=== PATIENT | female | born 1945 | race Caucasian/White ===

== ENCOUNTER → 2018-02-07 14:50 | Outpatient (CLI) | payer MEDICARE, MEDICAID, SELFPAY ==
--- NOTE | 2018-02-07 | DI.MRI.S_ITS ---
PROCEDURE: MR THORACIC SPINE WO CON INDICATIONS: MID BACK PAIN TECHNIQUE: Noncontrast sagittal T1 spine echo and T2 fast spin echo, sagittal STIR, axial T1 and T2 fast spin echo through the thoracic spine. COMPARISON: None. FINDINGS: Image quality: Excellent. Alignment and Curvature: There is normal bony alignment. Bone Marrow: Marrow is of normal overall signal. T4, T11 and L2 compression fractures although no acute marrow edema and these findings are likely chronic. Spinal Cord: Visualized spinal cord is normal in size and signal. Paraspinous Soft Tissues: No paravertebral masses. Bilateral pleural effusions are present. Suspicious pleural based abnormal consolidation/soft tissue seen on image 28 series 6 and right lung base for which dedicated CT chest is recommended. Miscellaneous: No foraminal narrowing. Severe canal stenosis at the level of the L2 compression fracture IMPRESSION: Abnormal appearing consolidation involving the medial right lung base. Bronchogenic malignancy cannot be excluded. Recommend followup with dedicated contrast chest CT. Findings and recommendations personally telephoned and discussed with Dr. Worrell on 02/07/18 at 1655 hours. Chronic T4, T11 and L2 compression fractures. Associated severe canal stenosis at level of the L2 compression fracture due to posterior displacement of the posterior vertebral body wall. Diffuse loss of the normal T1 marrow fat signal intensity suggestive of chronic anemia although other malignant marrow infiltrative processes cannot be excluded. Please correlate to laboratory and clinical data. Small bilateral pleural effusions Dictated by: Adebayo Neumann M.D. on 02/07/2018 at 16:21 Approved by: Adebayo Neumann M.D. on 02/07/2018 at 16:56
== END ==
PROVIDERS: Visit Provider Physical Medicine & Rehabilitation Pain Medicine
DX: M54.6 Pain in thoracic spine (principal); J18.1 Lobar pneumonia, unspecified organism; M48.54XD Collapsed vertebra, not elsewhere classified, thoracic region, subsequent encounter for fracture with routine healing; M48.56XD Collapsed vertebra, not elsewhere classified, lumbar region, subsequent encounter for fracture with routine healing; M48.061 Spinal stenosis, lumbar region without neurogenic claudication
CPT/HCPCS: 72146

== ENCOUNTER → 2018-02-17 13:40 | Outpatient (CLI) | payer MEDICARE, MEDICAID, SELFPAY ==
--- NOTE | 2018-02-17 | DI.CT.S_ITS ---
PROCEDURE: CT CHEST W CON INDICATIONS: LUNG MASS TECHNIQUE: After the administration of intravenous contrast, 5 mm thick sections acquired from the pulmonary apices to the posterior costophrenic angles. 7 mm thick coronal and sagittal MIP reformats were acquired. For radiation dose reduction, the following was used: automated exposure control, adjustment of mA and/or kV according to patient size. COMPARISON: [facility], CR, XR THORACIC SPINE 2 VIEWS, 01/23/2018, 15:11. Outside Facility, RG, MRI L-SPINE W/O CONTRAST, 09/13/2012, 13:52. [facility], MR, MR THORACIC SPINE WO CON, 02/07/2018, 15:03. [facility], CR, CHEST 2 VIEW, 09/06/2012, 9:48. FINDINGS: Image quality: Excellent. Lungs and pleura: Bilateral irregular airspace infiltrates, predominantly involving lower globes no single to right upper and middle lobe, and to a lesser degree the left upper lobe. No pleural effusions or pneumothorax. Small bilateral profusions seen on the MRI dated 02/07/2018 have resolved. Central and peripheral airways are patent and normal in caliber. Mediastinum: Heart size is normal. No pericardial effusion. No mediastinal or hilar adenopathy by size criteria. Thoracic aorta and central pulmonary arteries are normal in size. Esophagus is normal in caliber. No hiatal hernia. Bones and chest wall: No suspicious bony lesions. There are multiple vertebral body compression fractures, severe at T3, T10 and L1. There is posterior displacement of L1 vertebral body causing severe central canal stenosis. There is kyphoplasty of T10. No axillary or supraclavicular adenopathy by size criteria. There is a 1 cm nodule in the right thyroid lobe. Abdomen: Visualized upper abdominal solid organs appear normal. Upper abdominal bowel loops are normal in caliber. IMPRESSION: 1. Bilateral irregular airspace opacities predominantly involving lower loops, most likely secondary to an infectious or inflammatory process. Neoplasm, however, cannot be entirely excluded. Recommend clinical correlation and short-term followup CT after adequate treatment. 2. No mediastinal lymphadenopathy. 3. Multiple compression fractures involving T3, T10 and L1. There is posterior displacement of L1 vertebral body causing severe central canal stenosis. Dictated by: Liset Maldonado M.D. on 02/17/2018 at 14:22 Transcribed by: SHERON on 02/17/2018 at 14:28 Approved by: Liset Maldonado M.D. on 02/19/2018 at 10:10
== END ==
PROVIDERS: PCP Family Medicine; Visit Provider Family Medicine
DX: M48.55XA Collapsed vertebra, not elsewhere classified, thoracolumbar region, initial encounter for fracture (principal); R91.8 Other nonspecific abnormal finding of lung field; E04.1 Nontoxic single thyroid nodule
CPT/HCPCS: 71260; Q9967

== ENCOUNTER → 2018-03-09 14:06 | Outpatient (CLI) | payer MEDICARE, MEDICAID, SELFPAY ==
--- NOTE | 2018-03-09 | DI.CT.S_ITS ---
PROCEDURE: CT CHEST WO CON INDICATIONS: Followup lung masses. TECHNIQUE: Noncontrast 5 mm thick sections acquired from the pulmonary apices to the posterior costophrenic angles. 7 mm thick coronal and sagittal MIP reformats were then acquired. For radiation dose reduction, the following was used: automated exposure control, adjustment of mA and/or kV according to patient size. COMPARISON: [facility], CT, CT CHEST W CON, 02/17/2018, 13:41. FINDINGS: Image quality: Excellent. Lungs and pleura: There are multiple irregular subpleural airspace densities, predominantly involving lower lobes, unchanged from the last examination dated 02/17/2018. For example, a 10 mm spiculated density is noted in the superior segment of the right lower lobe medially (series 3 image 32), not significantly changed from the last exam. A cluster irregular, spiculated densities in the left lower lobe (series 3 image 45) is also stable. No pleural effusions or pneumothorax. Central and peripheral airways are patent and normal in caliber. Mediastinum: Heart size is normal. No pericardial effusion. No mediastinal adenopathy by size criteria. Thoracic aorta and central pulmonary arteries are normal in size. Esophagus is normal in caliber. No hiatal hernia. Bones and chest wall: No suspicious bony lesions. There are severe vertebral body compression fractures at T3 and T10. There is vertebroplasty at T10. No axillary or supraclavicular adenopathy by size criteria. Thyroid gland is normal. Abdomen: Visualized upper abdominal solid organs and bowel loops appear normal in the absence of contrast. IMPRESSION: 1. Stable bilateral irregular airspace opacities, most likely infectious or inflammatory etiology. Recommend continued followup as a neoplastic process is not completely excluded. 2. Severe compression fractures at T3 and T10. Fleischner Society criteria for SOLID lung nodule followup. Nodule size (mm)Low-risk patientHigh-risk patient?4No follow-up neededFollow-up at 12 mo; if no change, no further follow-up>[id number] CT at 12 mo; if no change, no further follow-up needed.Initial follow-up CT at 6-12 mo, then 18-24 mo if no change. >6-8Initial follow-up CT at 6-12 mo, then 18-24 mo if no change. Initial follow-up CT at 3-6 mo, then 9-12 mo and 24 mo if no change. >8Follow-up CT at 3, 9, 24 mo. Or PET and/or biopsy.Same as for low-risk pts. Fleischner Society criteria for SUB-SOLID lung nodule followup. Solitary pure ground-glass nodules5 mm or lessNo followup needed. >5 mm3 mo follow-up CT to confirm persistence. Then annual CT for 3 years. Part-solid nodules3 mo follow-up CT to confirm persistence. If persistent with solid component <5 mm, annual CT for at least 3 years. If solid component is 5 mm or more, biopsy or surgical resection. Consider PET-CT for lesions > 10 mm. Multiple sub-solid nodulesPure ground glass nodules [address] at 2 and 4 years. Pure ground glass nodules >5 mm without dominant lesion. [address] to confirm persistence, then annual followup CT for at least 3 years. Dominant nodule(s) with part-solid or solid component. [address] to confirm persistence. If persistent, consider biopsy or surgical resection, [place] if lesions have >5 mm solid component. Dictated by: Liset Maldonado M.D. on 03/09/2018 at 14:46 Transcribed by: SHERON on 03/09/2018 at 14:57 Approved by: Liset Maldonado M.D. on 03/09/2018 at 15:50
== END ==
PROVIDERS: PCP Family Medicine; Visit Provider Family Medicine
DX: R91.8 Other nonspecific abnormal finding of lung field (principal); M48.54XA Collapsed vertebra, not elsewhere classified, thoracic region, initial encounter for fracture
CPT/HCPCS: 71250

== ENCOUNTER → 2018-04-07 14:02 | Outpatient (CLI) | payer MEDICARE, MEDICAID, SELFPAY | PROVIDERS: PCP Family Medicine; Visit Provider Family Medicine | DX: M81.0 Age-related osteoporosis without current pathological fracture (principal); Z78.0 Asymptomatic menopausal state; Z87.891 Personal history of nicotine dependence | CPT/HCPCS: 77080 ==

== ENCOUNTER → 2021-03-12 13:52 | Outpatient (CLI) | payer MEDICARE, MEDICAID, SELFPAY | PROVIDERS: PCP Internal Medicine; Referring Provider Internal Medicine Endocrinology, Diabetes & Metabolism; Visit Provider Internal Medicine Endocrinology, Diabetes & Metabolism | DX: M81.0 Age-related osteoporosis without current pathological fracture (principal); Z78.0 Asymptomatic menopausal state; S62.101S Fracture of unspecified carpal bone, right wrist, sequela; Z87.891 Personal history of nicotine dependence | CPT/HCPCS: 77080 ==

== ENCOUNTER → 2021-09-09 14:44 | Outpatient (CLI) | payer MEDICARE, MEDICAID, SELFPAY ==
--- NOTE | 2021-09-09 14:52 | DI.RAD.S_ITS ---
PROCEDURE: XR CHEST 2V INDICATIONS: Multiple Fractures TECHNIQUE: 2 views of the chest were acquired. COMPARISON: [facility], , CHEST 2 VIEW, 09/06/2012, 9:48. FINDINGS: Surgical changes and devices: None. Lungs and pleura: There is interstitial prominence. Left basilar scars and atelectasis. Pleural thickening versus trace pleural effusions bilaterally. No pneumothorax. Mediastinum: Mediastinal contours are normal. Heart size is normal. Bones and chest wall: Compression fracture of T12 with vertebroplasty. No suspicious bony abnormalities. Soft tissues appear unremarkable. IMPRESSION: 1. Left basilar scars and atelectasis. 2. Interstitial prominence. 3. Bilateral pleural scarring versus trace pleural effusions. Dictated by: Liset Maldonado M.D. on 09/09/2021 at 17:22 Approved by: Liset Maldonado M.D. on 09/09/2021 at 17:24
== END ==
PROVIDERS: PCP Internal Medicine; Referring Provider Physician Assistant; Visit Provider Physician Assistant
DX: R05.8 Other specified cough; R06.00 Dyspnea, unspecified; J98.4 Other disorders of lung; J98.11 Atelectasis
CPT/HCPCS: 71046

== ENCOUNTER → 2021-10-19 10:55 | Outpatient (CLI) | payer MEDICARE, MEDICAID, SELFPAY ==
[2021-10-19 16:16] LABS: COVID19 -Nasal RAPID Negative (Negative)
== END ==
PROVIDERS: PCP Internal Medicine; Visit Provider Obstetrics & Gynecology
DX: Z01.812 Encounter for preprocedural laboratory examination (principal); Z20.822 Contact with and (suspected) exposure to COVID-19
CPT/HCPCS: 87635

== ENCOUNTER 2021-10-22 07:38 | Day surgery (SDC) | payer MEDICARE, MEDICAID, SELFPAY ==
[2021-10-19 15:02] VITALS: BMI 25.2
[2021-10-22] VITALS (7 sets, daily range): BP systolic 86–120; BP diastolic 43–62; PULSE 10–86; RESP 11–18; TEMP 36.6–36.8; O2SAT 93–95; BMI 25.2
--- NOTE | 2021-10-22 08:29 | SUR.OPER ---
Lithotomy on padded OR bed, head on pillow, arms secured on padded arm boards at <90 degrees abduction. Legs secured in padded yellow fins stirrups.
--- NOTE | 2021-10-22 08:31 | PM.HP.1 ---
History of Present Illness History of Present Illness Date Patient Seen: 10/22/21 Time Patient Seen: 08:53 Chief complaint: SDC Narrative: Patient is a 76-year-old 0 who presented to the office with postmenopausal bleeding. She had endometrial hyperplasia by ultrasound. She was unable to tolerate any exam in the office. She presents for a D&C hysteroscopy. Patient History Medical History (Updated 10/19/21 @ 15:09 by Sheri Knapp RN) Anxiety Asthma HLD (hyperlipidemia) Osteoarthritis PTSD (post-traumatic stress disorder) Spinal fracture Surgical History (Updated 10/19/21 @ 15:09 by Sheri Knapp RN) Hx of knee surgery Family & Social History Tobacco & Substance use: Smoking Status Former smoker alcohol intake never Substance Use Type does not use Meds Home Medications and Allergies Home Medications Medication Instructions Recorded Confirmed Type albuterol sulfate 90 mcg/actuation 1 - 2 puff INH PRN PRN #0 10/18/17 10/22/21 History aerosol inhaler (Ventolin HFA) alendronate 70 mg tablet 70 mg PO QWEEK #0 10/18/17 10/22/21 History atorvastatin 40 mg tablet 40 mg PO DAILY 10/19/21 10/22/21 History diltiazem HCl 240 mg 240 mg PO DAILY 10/19/21 10/22/21 History capsule,extended release 24 hr (Cardizem CD) divalproex 125 mg tablet,delayed 375 mg PO TID tab 10/19/21 10/22/21 History release gabapentin 300 mg capsule 600 mg PO TID #0 cap 10/19/21 10/22/21 History (Neurontin) hydrocodone 10 mg-acetaminophen 1 tab PO Q4-6H PRN 10/19/21 10/22/21 History 325 mg tablet mirtazapine 30 mg tablet 30 mg PO DAILY 10/19/21 10/22/21 History rivaroxaban 20 mg tablet (Xarelto) 20 mg PO DAILY 10/19/21 10/19/21 History temazepam 15 mg capsule 30 mg PO BEDTIME PRN cap 10/19/21 10/19/21 History Allergies Allergy/AdvReac Type Severity Reaction Status Date / Time amoxicillin [AMOXICILLIN] Allergy Unknown VERY Verified 10/22/21 08:38 NAUSEOUS. IT HAPPENED SO LONG AGO CAN'T REMEMBER CARLOS clavulanic acid Allergy Unknown NAUSEA Verified 10/22/21 08:38 [From AUGMENTIN] Penicillins [PENICILLINS] Allergy Unknown NAUSEA Verified 10/22/21 08:38 tetracycline [TETRACYCLINE] Allergy Unknown NAUSEA Verified 10/22/21 08:38 Exam Vital Signs (past 8 hours): - 10/22/21 08:15 Temperature 98.1 F Pulse Rate 86 Respiratory Rate 18 Blood Pressure 103/62 Pulse Oximetry 95 Oxygen Delivery Method Room Air Narrative Exam Narrative: HEENT: No thyromegaly, no anterior cervical or supraclavicular lymphadenopathy. Lungs:Clear to auscultation bilaterally, no wheezes. Cardiovascular: Regular rate and rhythm, no murmurs, rubs, or gallops. Abdomen: No scars. No hepatosplenomegaly. No masses palpable. External genitalia: Atrophic Vagina: Atrophic Cervix: Nulliparous Bimanual exam: Patient unable to tolerate Extremities: Blister on left heel Assessment & Plan Assessment & Plan narrative: Assessment: 76-year-old 0 with postmenopausal bleeding and endometrial hyperplasia Unable to tolerate biopsy in the office Plan: Examination under anesthesia D&C hysteroscopy The risks, benefits, and alternatives to the procedure were explained to the patient. The risks including bleeding, infection, and uterine perforation. She understands these risks and agrees to proceed. A full par Q was held and consent form was signed. COVID-19 COVID-19 status: Negative Result date/Date tested (Pos, Neg/Pending): 10/19/21 Time Spent With Patient Time with patient: less than 30 minutes Critical Care time: I spent a total of [] minutes of critical care time on this patient's care today; this time is exclusive of procedural time.
[2021-10-22] MEDS: LACTATED RINGERS 1,000 ML 100 ML IV (08:39)
--- NOTE | 2021-10-22 08:56 | PM.PREOP ---
Pre-operative Note COVID-19 COVID-19 status: Negative Result date/Date tested (Pos, Neg/Pending): 10/22/21 Criteria for continued procedure: Delay expected to result in less-positive ultimate med/surg outcome and Non-surgical alternatives not available or appropriate per current SOC Interval Note History & Physical reviewed/Exam performed by Physician: Yes Changes to H&P: No H&P completed within 30 days and has changed as indicated here:: 10/22/21
--- NOTE | 2021-10-22 09:36 | PM.GYNOP.1 ---
Operative Date/Time/Diagnoses Date of procedure: 10/22/21 Time of procedure: 09:36 Pre-op diagnosis: Postmenopausal bleeding Endometrial hyperplasia by ultrasound Unable to tolerate endometrial biopsy in the office Post-op diagnosis: same Procedure & Clinicians Procedure: Procedures Operation Date: 10/22/21 09:00 Actual Procedure Side Surgeon p Examination under anesthesia Tara Grey MD Indications: Postmenopausal bleeding Endometrial hyperplasia by ultrasound Unable to tolerate endometrial biopsy in the office Surgeon: Tara Grey Anesthesia Type: General (LMA) Operative Notes Findings: 5 week size anteverted uterus Stenotic/atrophic vagina Unable to visualize cervix Closure Type: not applicable Specimen(s): none Estimated blood loss (mL): 2 Blood products transfused: none Procedure in detail: After informed consent was obtained, the patient was taken to the operating room where she was placed in the dorsal supine position. After adequate LMA general anesthesia was achieved, she was placed in the dorsal lithotomy position, and prepped and draped in the usual sterile fashion. A time-out was performed. A pediatric speculum was placed into the vagina. The cervix was not visualized. The speculum was removed. A digital exam was performed which revealed a very stenotic posterior vagina as well as atrophy. An attempt was made to open the vagina digitally with some Surgilube. The cervix could never be visualized. Due to risk of perforation, no attempt was made to dilate. The speculum was removed from the vagina. Sponge, lap, and instrument counts were correct x2. The patient tolerated the procedure well, and was taken to PACU in stable condition. Complications: none Post-operative Condition: stable Disposition: PACU Plan for aftercare: Home after recovery
--- NOTE | 2021-10-22 10:37 | SUR.PHASEII ---
patient has slight shivers. warm blankets given. will allow to rest for a bit then dress for dc home. denies pain.
== END 2021-10-22 11:20 | disposition home or self-care (01) ==
PROVIDERS: PCP Internal Medicine; Referring Provider Obstetrics & Gynecology; Visit Provider Obstetrics & Gynecology
PROC: 0UDB8ZZ Extraction of Endometrium, Via Natural or Artificial Opening Endoscopic (ICD-10-PCS; CPT 58558; principal; 2021-10-22 09:00)
DX: N95.0 Postmenopausal bleeding (principal); N85.00 Endometrial hyperplasia, unspecified; N89.5 Stricture and atresia of vagina
CPT/HCPCS: 57410; J2704; J3010

== ENCOUNTER 2022-01-31 12:58 | Inpatient (IN) | payer MEDICARE, MEDICAID, SELFPAY ==
[2022-01-31 13:11] VITALS: BP 162/81; PULSE 67; RESP 18; TEMP 35.8; O2SAT 96; BMI 26.2
--- NOTE | 2022-01-31 13:38 | DI.RAD.S_ITS ---
PROCEDURE: XR CHEST 1V INDICATIONS: Fatigue TECHNIQUE: One view of the chest was acquired. COMPARISON: [facility], CR, XR CHEST 2V, 09/09/2021, 14:55. FINDINGS: Surgical changes and devices: None. Metallic density overlying the mid chest may represent overlying structure. Kyphoplasty changes of the lower thoracic spine. Lungs and pleura: Slightly increased lucency in flattening of the hemidiaphragms. No pneumothorax or pleural effusion. Subtle small opacities are noted scattered throughout the right greater than left lung. Mediastinum: Mediastinal contours appear normal. Heart size is normal. Bones and chest wall: No suspicious bony lesions. Remote thoracic spine compression deformity. Remote left-sided rib fractures. No acute osseous abnormality. Overlying soft tissues appear unremarkable. IMPRESSION: Findings suggestive of emphysema. Subtle patchy opacities noted throughout the right greater than left lungs concerning for an atypical infectious process/multifocal pneumonia in the correct clinical setting. Dictated by: Nathan Alba D.O. on 01/31/2022 at 12:53 Approved by: Nathan Alba D.O. on 01/31/2022 at 12:57
[2022-01-31 14:23] LABS: Add Manual Diff / Slide Review NO; Basophils Absolute Auto 100 /uL (0-100); Basophils Percent Auto 0.9 % (0-2); Eosinophils Absolute Auto 0 /uL (0-450); Hematocrit 33.4 % (36-46); Hemoglobin 11.1 g/dL (12.0-16.0); Lymphocytes Absolute Auto 800 /uL (1100-4500); Lymphocytes Percent Auto 5.2 % (25-40); Mean Corpuscular HGB Conc 33.2 % (30-36); Mean Corpuscular Hemoglobin 29.7 PG (26-34); Mean Corpuscular Volume 89.5 fL (80-100); Monocytes Absolute Auto 1300 /uL (0-900); Monocytes Percent Auto 8.5 % (3-14); Neutrophils Absolute Auto 12600 /uL (1500-7000); Neutrophils Percent Auto 85.4 % (50-75); Platelet Count 225 X10^3/uL (150-400); Red Blood Cell Count 3.73 X10^6/uL (4.0-5.2); Red Cell Distribution Width 14.7 % (11.6-14.8); White Blood Cell Count 14.7 X10^3/uL (4.5-11.0)
[2022-01-31 14:34] LABS: Alanine Aminotransferase 17 IU/L (<35); Albumin 3.3 g/dL (3.5-5.0); Albumin Globulin Ratio 1.1 (1.0-2.8); Alkaline Phosphatase 62 U/L (38-126); Aspartate Aminotransferase 26 IU/L (14-36); BUN Creatinine Ratio 49.3 (6-22); Bilirubin Total 0.8 mg/dL (0.2-1.3); Blood Urea Nitrogen 34 mg/dL (7-17); Calcium 8.4 mg/dL (8.4-10.2); Carbon Dioxide 27 mmol/L (22-32); Chloride 107 mmol/L (98-107); Creatine Kinase 48 U/L (30-135); Estimated Glomerular Filt Rate > 60 mL/min (>60); Globulin 2.9 g/dL (1.7-4.1); Glucose 123 mg/dL (80-110); HEMOLYSIS < 15 (0-50); Lipase 30 U/L (23-300); Potassium 4.2 mmol/L (3.4-5.1); Sodium 138 mmol/L (137-145); Total Protein 6.2 g/dL (6.3-8.2)
[2022-01-31 14:35] LABS: Lactate (Lactic Acid) 0.8 mmol/L (0.7-2.1)
[2022-01-31 14:46] LABS: Troponin I < 0.012 ng/mL (0.01-0.034)
[2022-01-31 14:51] LABS: Procalcitonin 0.21 ng/mL (<0.5)
--- NOTE | 2022-01-31 14:53 | DI.CT.S_ITS ---
PROCEDURE: CT CHEST ABD PEL W CON INDICATIONS: Abdominal pain, diarrhea, wheezing TECHNIQUE: After the administration of intravenous contrast, 5 mm thick sections acquired from the lung apices to the symphysis. 5 mm coronal and sagittal reformats were performed, with additional 7 mm MIP reformats through the lungs. For radiation dose reduction, the following was used: automated exposure control, adjustment of mA and/or kV according to patient size. COMPARISON: [facility], CR, XR LUMBAR SPINE WITH OLBIQUES PLUS FLEXION EXTENSION, 04/28/2020, 13:23. [facility], NM, NM PET CT FUSION SKULL 2 THIGH, 05/10/2018, 15:38. [facility], CR, XR LUMBAR SPINE WITH OLBIQUES PLUS FLEXION EXTENSION, 08/26/2017, 14:08. [facility], CT, CT CHEST WO CON, 03/09/2018, 14:09. FINDINGS: Image quality: Excellent. CHEST: Lungs and pleura: There is no focal consolidation, pneumothorax, or pleural effusion. Likely mucous plugging noted within the posterior aspect of the right lower lobe. Adjacent parenchymal calcifications which may represent granulomas versus is remote infectious or inflammatory changes. These findings are unchanged. Within the right lower lobe there is a new 9 x 7 mm irregular pulmonary nodule with extension to the adjacent fissure. There is an adjacent intra fissural lymph node. Mediastinum: Heart size is normal. No pericardial effusion. No mediastinal or hilar adenopathy by size criteria. A few calcified mediastinal lymph nodes. Moderate coronary vascular calcifications. Thoracic aorta and central pulmonary arteries are normal in size. Vascular calcifications of throughout the aorta and branch vessels. All common body occupies 5 in at Esophagus is normal in caliber. No hiatal hernia. Chest wall: No axillary or supraclavicular adenopathy by size criteria. Thyroid gland is unremarkable. ABDOMEN: Solid organs: There is moderate intrahepatic ductal dilation. The common bile duct it measures 1.7 cm and a lesion. There is irregular hypoattenuation noted adjacent to the distal common bile duct and pancreatic head as well as the distal stomach/proximal duodenum. This is difficult to delineate from the adjacent structures. There is pneumobilia no struck a shins angi within the left side of the liver. Spleen is normal in size and enhancement. Multiple calcifications noted throughout the spleen consistent with prior granulomatous disease. No adrenal nodules. Kidneys demonstrate normal size and enhancement, without hydronephrosis. Peritoneum and bowel: Small hiatal hernia. The distal subtle lytic wall appears thickened did difficult to fully appreciate extending into the soft tissue density adjacent to the pancreatic head. This extends into the proximal duodenum lobe. Small bowel is otherwise normal in course and caliber. There is diffuse stool burden noted throughout the colon with dilation of the distal sigmoid and rectum with wall thickening and surrounding inflammation. There is also mild wall thickening of the rectum. Nodes and vessels: No retroperitoneal or mesenteric adenopathy by size criteria. Aorta and inferior vena cava are normal in size. Miscellaneous: No ventral hernias. PELVIS: Genitourinary: Bladder wall thickness is normal. Large calcified uterine fibroid. Miscellaneous: No inguinal hernias or adenopathy. Bones: Severe compression deformity of T4 is again noted, not significantly changed. Remote compression deformity of T11 with vertebroplasty changes is also unchanged. Severe compression deformity of L2 with posterior displacement of fracture fragment resulting in at least moderate spinal canal stenosis is also not significantly changed. No new compression fracture. No new osseous abnormality. Remote left 4th rib fracture. No vertebral body compression fractures. IMPRESSION: Non-specific soft tissue attenuation surrounding the head of the pancreas as well as the distal stomach and proximal duodenum with resultant common bile duct dilation as well as intrahepatic ductal dilation concerning for malignancy versus inflammatory process of the stomach/proximal duodenum. Recommend dedicated MRI with MRCP for further evaluation versus direct visualization with endoscopy/ERCP. 8 mm right middle lobe irregular pulmonary nodule. Consider PET-CT versus sampling. Findings most consistent with stercoral colitis with marked colonic distention, wall thickening and surrounding inflammation of the distal sigmoid colon and rectum. There is mild wall thickening of the distal rectum. Recommend correlation with direct visualization and physical exam to exclude malignancy. Multiple remote compression fractures of the thoracic and lumbar spine. Additional chronic findings as above. Findings discussed with DANIELA Sandy of the ER by Dr. Nathan Alba over the telephone at approximately 1520 hrs AST on 01/31/22. Dictated by: Nathan Alba D.O. on 01/31/2022 at 14:44 Approved by: Nathan Alba D.O. on 01/31/2022 at 15:26
--- NOTE | 2022-01-31 14:57 | ED_ITS ---
HPI - Nausea/Vomiting/Diarrhea <Ramón Sandy PA-C - Last Filed: 01/31/22 19:38> General Chief complaint: Nausea/Vomiting/Diarrhea Stated complaint: fatigue Time Seen by Provider: 01/31/22 13:28 Source: EMS Mode of arrival: EMS History of Present Illness HPI Narrative: Patient is a 76-year-old female who presents to the emergency department the EMS for an evaluation of fatigue. Patient states that over the past 3 days she has been almost exclusively in bed and has not been eating and drinking regularly. She states that she has been experiencing fatigue over the past 3 days and does report that she began to experience nonbloody diarrhea 2 days ago. She denies any known fever, chills, chest pain, cough, shortness of breath, nausea, vomiting, constipation, abdominal pain, dysuria, hematuria, or any other concerning symptoms. No further concerns were voiced at this time. Related Data Home Medications Medication Instructions Recorded Confirmed albuterol sulfate 90 mcg/actuation 1 - 2 puff INH PRN PRN Shortness 10/18/17 01/20/22 aerosol inhaler (Ventolin HFA) Of Breath ##0 alendronate 70 mg tablet 70 mg PO QWEEK ##0 10/18/17 01/20/22 atorvastatin 40 mg tablet 40 mg PO DAILY 10/19/21 01/20/22 diltiazem HCl 240 mg 240 mg PO DAILY 10/19/21 01/20/22 capsule,extended release 24 hr (Cardizem CD) divalproex 125 mg tablet,delayed 375 mg PO TID 10/19/21 01/20/22 release gabapentin 300 mg capsule 600 mg PO TID #0 caps 10/19/21 01/20/22 (Neurontin) hydrocodone 10 mg-acetaminophen 1 tab PO Q4-6H PRN Pain 10/19/21 01/20/22 325 mg tablet mirtazapine 30 mg tablet 30 mg PO DAILY 10/19/21 01/20/22 temazepam 15 mg capsule 30 mg PO BEDTIME PRN Sleep 10/19/21 01/20/22 Previous Rx's Medication Instructions Recorded estradiol 0.01% (0.1 mg/gram) 0.5 g vaginal BEDTIME #42.5 grams 01/06/22 vaginal cream (Estrace) Allergies Allergy/AdvReac Type Severity Reaction Status Date / Time amoxicillin [AMOXICILLIN] AdvReac Unknown VERY Verified 01/31/22 15:03 NAUSEOUS. IT HAPPENED SO LONG AGO CAN'T REMEMBER CARLOS clavulanic acid AdvReac Unknown NAUSEA Verified 01/31/22 15:03 [From AUGMENTIN] Penicillins [PENICILLINS] AdvReac Unknown NAUSEA Verified 01/31/22 15:03 tetracycline [TETRACYCLINE] AdvReac Unknown NAUSEA Verified 01/31/22 15:03 Review of Systems <Ramón Sandy PA-C - Last Filed: 01/31/22 19:38> Constitutional Constitutional: Denies chills, Reports fatigue, Denies fever(s), Denies frequent falls, Denies lethargy, Reports poor appetite and Denies weakness ENT Ears, Nose, Mouth, and Throat: Denies neck pain Cardiovascular Cardiovascular: Denies chest pain, Denies irregular heart rhythm, Denies lightheadedness, Denies palpitations, Denies dyspnea, Denies dyspnea on exertion and Denies orthopnea Respiratory Respiratory: Denies dyspnea and Denies dyspnea on exertion Gastrointestinal Gastrointestinal: Denies abdominal pain, Denies change in bowel habits, Reports diarrhea, Denies nausea and Denies vomiting Genitourinary Genitourinary: Denies hematuria, Denies flank pain, Denies urinary incontinence and Denies urinary urgency Musculoskeletal Musculoskeletal: Denies back pain, Denies muscle weakness, Denies neck pain, Denies numbness and Denies tingling Integumentary/Breasts Skin/Breast: Denies pruritus, Denies erythema, Denies rash and Denies wounds Neurologic Neurologic: Denies frequent falls, Denies numbness, Denies tingling and Denies weakness Endocrine Endocrine: Reports fatigue and Denies palpitations Patient History <Ramón Sandy PA-C - Last Filed: 01/31/22 19:38> Medical History Anxiety Asthma HLD (hyperlipidemia) Osteoarthritis PTSD (post-traumatic stress disorder) Spinal fracture Surgical History Hx of knee surgery Social History Smoking Status: Former smoker alcohol intake: never Smoking Status: Former smoker Substance Use Type: does not use Exam <Ramón Sandy PA-C - Last Filed: 01/31/22 19:38> Narrative Exam Narrative: GENERAL: 76 year old patient appears stated age. Well-developed patient, in no acute distress. HEAD: Atraumatic. Normocephalic. EYES: Pupils equal round and reactive. Extraocular motions intact. No scleral icterus. No injection or drainage. ENT: Nose without bleeding, purulent drainage. Throat without erythema, tonsillar hypertrophy or exudate. Airway patent. NECK: Trachea midline. Non tender CARDIOVASCULAR: Regular rate and rhythm without murmurs, gallops, or rubs. RESPIRATORY: Scattered wheezing auscultated throughout all lobes of the lungs bilaterally. No increased work of breathing appreciated. No signs of significant respiratory distress. GASTROINTESTINAL: Abdomen soft, nondistended. Generalized tenderness to palpation appreciated throughout all 4 quadrants of the abdomen. No guarding or rebound tenderness. No masses appreciated, no overlying ecchymosis or erythema. EXTREMITIES: No edema or joint tenderness. BACK: Nontender without deformity or crepitance. No flank tenderness. NEURO: AOx3. SKIN: No rash or erythema of visible areas Initial Vital Signs Initial Vital Signs: Vital Signs Temperature 96.4 F L 01/31/22 13:11 Pulse Rate 67 01/31/22 13:11 Respiratory Rate 18 01/31/22 13:11 Blood Pressure 162/81 H 01/31/22 13:11 Pulse Oximetry 96 01/31/22 13:11 Oxygen Delivery Method 01/31/22 13:11 <Chato Acosta MD - Last Filed: 01/31/22 21:36> Initial Vital Signs Initial Vital Signs: Vital Signs Temperature 96.4 F L 01/31/22 13:11 Pulse Rate 67 01/31/22 13:11 Respiratory Rate 18 01/31/22 13:11 Blood Pressure 162/81 H 01/31/22 13:11 Pulse Oximetry 96 01/31/22 13:11 Oxygen Delivery Method 01/31/22 13:11 Course <Ramón Sandy PA-C - Last Filed: 01/31/22 19:38> Course Course Narrative: CBC, CMP, lipase, troponin, procalcitonin, lactic acid, COVID-19 swab, chest x- ray, left foot x-ray, CT of the chest abdomen pelvis ordered. Discussed results CT with hospitalist and states that she believes it is appropriate to have patient admitted. Orders Ordered: ED Orders 01/31/22 13:38 XR chest 1V Stat 01/31/22 14:14 CBC Auto Diff [Complete Blood Count AUTO DIFF] Stat CMP [Comprehensive Metabolic Panel] Stat Lactate (Lactic Acid) Stat Lipase Stat Procalcitonin Stat Troponin & CK Cardiac Panel Stat 01/31/22 14:53 CT chest abd pel w con Stat 01/31/22 15:45 XR foot LT min 3V Stat 01/31/22 16:18 COVID19 -Nasal RAPID/Pre-Proc Stat Discontinued Medications Sodium Chloride (Normal Saline 0.9%) 1,000 mls @ 1,000 mls/hr IV BOLUS ONE Stop: 01/31/22 15:52 Last Infusion: 01/31/22 19:11 Dose: 0 mls/hr Documented By: СВЕТЛАНА Admin: 01/31/22 15:58 Dose: 1,000 mls/hr Documented By: СВЕТЛАНА Morphine Sulfate (Morphine 4 Mg/Ml Inj) 4 mg IV NOW ONE Stop: 01/31/22 15:45 Last Admin: 01/31/22 15:58 Dose: 4 mg Documented By: СВЕТЛАНА Consultations Consultation #1: Consultation with Dr. Ya (internal medicine). Discussed CT results and patient case. She believes it is appropriate to have the patient admitted for observation. Time: 17:20 Vital Signs Vital signs: Vital Signs - 8 hr 01/31/22 13:11 Temperature 96.4 F L Pulse Rate 67 Respiratory Rate 18 Blood Pressure 162/81 H Pulse Oximetry 96 Oxygen Delivery Method Room Air <Chato Acosta MD - Last Filed: 01/31/22 21:36> Orders Ordered: ED Orders 01/31/22 13:38 XR chest 1V Stat 01/31/22 14:14 CBC Auto Diff [Complete Blood Count AUTO DIFF] Stat CMP [Comprehensive Metabolic Panel] Stat Lactate (Lactic Acid) Stat Lipase Stat Procalcitonin Stat Troponin & CK Cardiac Panel Stat 01/31/22 14:53 CT chest abd pel w con Stat 01/31/22 15:45 XR foot LT min 3V Stat 01/31/22 16:18 COVID19 -Nasal RAPID/Pre-Proc Stat Discontinued Medications Sodium Chloride (Normal Saline 0.9%) 1,000 mls @ 1,000 mls/hr IV BOLUS ONE Stop: 01/31/22 15:52 Last Infusion: 01/31/22 19:11 Dose: 0 mls/hr Documented By: СВЕТЛАНА Admin: 01/31/22 15:58 Dose: 1,000 mls/hr Documented By: СВЕТЛАНА Morphine Sulfate (Morphine 4 Mg/Ml Inj) 4 mg IV NOW ONE Stop: 01/31/22 15:45 Last Admin: 01/31/22 15:58 Dose: 4 mg Documented By: СВЕТЛАНА Vital Signs Vital signs: Vital Signs - 8 hr 01/31/22 13:11 Temperature 96.4 F L Pulse Rate 67 Respiratory Rate 18 Blood Pressure 162/81 H Pulse Oximetry 96 Oxygen Delivery Method Room Air MDM - Nausea/Vomiting/Diarrhea <Ramón Sandy PA-C - Last Filed: 01/31/22 19:38> Lab Data Result diagrams: 01/31/22 14:14 01/31/22 14:14 Labs: Lab Results 01/31/22 01/31/22 01/31/22 Range/Units 14:14 14:14 14:14 WBC 14.7 H (4.5-11.0) X10^3/uL RBC 3.73 L (4.0-5.2) X10^6/uL Hgb 11.1 L (12.0-16.0) g/dL Hct 33.4 L (36-46) % MCV 89.5 (80-100) fL MCH 29.7 (26-34) PG MCHC 33.2 (30-36) % RDW 14.7 (11.6-14.8) % Plt Count 225 (150-400) X10^3/uL Neut % (Auto) 85.4 H (50-75) % Lymph % (Auto) 5.2 L (25-40) % Harmon % (Auto) 8.5 (3-14) % Eos % (Auto) 0.0 L (2-4) % Baso % (Auto) 0.9 (0-2) % Neut # (Auto) 48106 H (1563-9271) /uL Lymph # (Auto) 800 L (5159-1048) /uL Harmon # (Auto) 1300 H (0-900) /uL Eos # (Auto) 0 (0-450) /uL Baso # (Auto) 100 (0-100) /uL Sodium 138 (137-145) mmol/L Potassium 4.2 (3.4-5.1) mmol/L Chloride 107 (98-107) mmol/L Carbon Dioxide 27 (22-32) mmol/L BUN 34 H (7-17) mg/dL Creatinine 0.69 (0.52-1.04) mg/dL Estimated GFR > 60 (>60) mL/min BUN/Creatinine Ratio 49.3 H (6-22) Glucose 123 H (80-110) mg/dL Lactate (0.7-2.1) mmol/L Calcium 8.4 (8.4-10.2) mg/dL Total Bilirubin 0.8 (0.2-1.3) mg/dL AST 26 (14-36) IU/L ALT 17 (<35) IU/L Alkaline Phosphatase 62 (38-126) U/L Total Creatine Kinase 48 (30-135) U/L CK-MB (CK-2) TNP CK-MB (CK-2) Rel Index TNP Troponin I < 0.012 (0.01-0.034) ng/mL Total Protein 6.2 L (6.3-8.2) g/dL Albumin 3.3 L (3.5-5.0) g/dL Globulin 2.9 (1.7-4.1) g/dL Albumin/Globulin Ratio 1.1 (1.0-2.8) Lipase 30 (23-300) U/L Procalcitonin 0.21 (<0.5) ng/mL SARS-CoV-2 (PCR) (Negative) 01/31/22 01/31/22 Range/Units 14:14 16:18 WBC (4.5-11.0) X10^3/uL RBC (4.0-5.2) X10^6/uL Hgb (12.0-16.0) g/dL Hct (36-46) % MCV (80-100) fL MCH (26-34) PG MCHC (30-36) % RDW (11.6-14.8) % Plt Count (150-400) X10^3/uL Neut % (Auto) (50-75) % Lymph % (Auto) (25-40) % Harmon % (Auto) (3-14) % Eos % (Auto) (2-4) % Baso % (Auto) (0-2) % Neut # (Auto) (2780-6790) /uL Lymph # (Auto) (0859-7585) /uL Harmon # (Auto) (0-900) /uL Eos # (Auto) (0-450) /uL Baso # (Auto) (0-100) /uL Sodium (137-145) mmol/L Potassium (3.4-5.1) mmol/L Chloride (98-107) mmol/L Carbon Dioxide (22-32) mmol/L BUN (7-17) mg/dL Creatinine (0.52-1.04) mg/dL Estimated GFR (>60) mL/min BUN/Creatinine Ratio (6-22) Glucose (80-110) mg/dL Lactate 0.8 (0.7-2.1) mmol/L Calcium (8.4-10.2) mg/dL Total Bilirubin (0.2-1.3) mg/dL AST (14-36) IU/L ALT (<35) IU/L Alkaline Phosphatase (38-126) U/L Total Creatine Kinase (30-135) U/L CK-MB (CK-2) CK-MB (CK-2) Rel Index Troponin I (0.01-0.034) ng/mL Total Protein (6.3-8.2) g/dL Albumin (3.5-5.0) g/dL Globulin (1.7-4.1) g/dL Albumin/Globulin Ratio (1.0-2.8) Lipase (23-300) U/L Procalcitonin (<0.5) ng/mL SARS-CoV-2 (PCR) Negative (Negative) Imaging Data Chest x-ray: Radiologist's Impression: PROCEDURE:? XR CHEST 1V ? INDICATIONS:? Fatigue ? TECHNIQUE:? One view of the chest was acquired.? ? COMPARISON:? [facility], , XR CHEST 2V, 09/09/2021, 14:55. ? FINDINGS:? ? Surgical changes and devices:? None.? Metallic density overlying the mid chest may represent overlying structure.? Kyphoplasty changes of the lower thoracic spine. ? Lungs and pleura:? Slightly increased lucency in flattening of the hemidiaphragms.? No pneumothorax or pleural effusion.? Subtle small opacities are noted scattered throughout the right greater than left lung. ? Mediastinum:? Mediastinal contours appear normal.? Heart size is normal.? ? Bones and chest wall:? No suspicious bony lesions.? Remote thoracic spine compression deformity.? Remote left-sided rib fractures.? No acute osseous abnormality.? Overlying soft tissues appear unremarkable.? ? IMPRESSION:? ? Findings suggestive of emphysema. ? ? Subtle patchy opacities noted throughout the right greater than left lungs concerning for an atypical infectious process/multifocal pneumonia in the correct clinical setting.? ? Dictated by: Nathan Alba D.O. on 01/31/2022 at 12:53 ? ? Approved by: Nathan Alba D.O. on 01/31/2022 at 12:57 CT scan-chest abdomen pelvis: Radiologist's Impression: PROCEDURE:? CT CHEST ABD PEL W CON ? INDICATIONS:? Abdominal pain, diarrhea, wheezing ? TECHNIQUE:? After the administration of intravenous contrast, 5 mm thick sections acquired from the lung apices to the symphysis.? 5 mm coronal and sagittal reformats were performed, with additional 7 mm MIP reformats through the lungs.? For radiation dose reduction, the following was used:? automated exposure control, adjustment of mA and/or kV according to patient size.? ? COMPARISON:? [facility] [place], XR LUMBAR SPINE WITH OLBIQUES PLUS FLEXION EXTENSION, 04/28/2020, 13:23.? [place], [place], [place] PET CT FUSION SKULL 2 THIGH, 05/10/2018, 15:38.? [facility], [place], XR LUMBAR SPINE WITH OLBIQUES PLUS FLEXION EXTENSION, 08/26/2017, 14:08.? [facility], [place], CT CHEST WO CON, 03/09/2018, 14:09. ? FINDINGS:? Image quality:? Excellent.? ? CHEST:? Lungs and pleura:? There is no focal consolidation, pneumothorax, or pleural effusion.? Likely mucous plugging noted within the posterior aspect of the right lower lobe.? Adjacent parenchymal calcifications which may represent granulomas versus is remote infectious or inflammatory changes.? These findings are unchanged.? Within the right lower lobe there is a new 9 x 7 mm irregular pulmonary nodule with extension to the adjacent fissure.? There is an adjacent intra fissural lymph node. ? Mediastinum:? Heart size is normal.? No pericardial effusion.? No mediastinal or hilar adenopathy by size criteria.? A few calcified mediastinal lymph nodes.? Moderate coronary vascular calcifications.? Thoracic aorta and central pulmonary arteries are normal in size.? Vascular calcifications of throughout the aorta and branch vessels.? All common body occupies 5 in at? Esophagus is normal in caliber.? No hiatal hernia.? ? Chest wall:? No axillary or supraclavicular adenopathy by size criteria.? Thyroid gland is unremarkable. ? ? ABDOMEN:? Solid organs:? There is moderate intrahepatic ductal dilation.? The common bile duct it measures 1.7 cm and a lesion.? There is irregular hypoattenuation noted adjacent to the distal common bile duct and pancreatic head as well as the distal stomach/proximal duodenum.? This is difficult to delineate from the adjacent structures.? There is pneumobilia no struck a shins angi within the left side of the liver.? Spleen is normal in size and enhancement.? Multiple calcifications noted throughout the spleen consistent with prior granulomatous disease.? No adrenal nodules.? Kidneys demonstrate normal size and enhancement, without hydronephrosis.? ? Peritoneum and bowel:? Small hiatal hernia.? The distal subtle lytic wall appears thickened did difficult to fully appreciate extending into the soft tissue density adjacent to the pancreatic head.? This extends into the proximal duodenum lobe.? Small bowel is otherwise normal in course and caliber.? There is diffuse stool burden noted throughout the colon with dilation of the distal sigmoid and rectum with wall thickening and surrounding inflammation.? There is also mild wall thickening of the rectum. ? Nodes and vessels:? No retroperitoneal or mesenteric adenopathy by size criteria.? Aorta and inferior vena cava are normal in size.? ? Miscellaneous:? No ventral hernias.? ? ? PELVIS:? Genitourinary:? Bladder wall thickness is normal.? Large calcified uterine fibroid. Miscellaneous:? No inguinal hernias or adenopathy.? ? Bones:? Severe compression deformity of T4 is again noted, not significantly changed.? Remote compression deformity of T11 with vertebroplasty changes is also unchanged.? Severe compression deformity of L2 with posterior displacement of fracture fragment resulting in at least moderate spinal canal stenosis is also not significantly changed.? No new compression fracture.? No new osseous abnormality.? Remote left 4th rib fracture.? No vertebral body compression fractures.? ? IMPRESSION:? ? Non-specific soft tissue attenuation surrounding the head of the pancreas as well as the distal stomach and proximal duodenum with resultant common bile duct dilation as well as intrahepatic ductal dilation concerning for malignancy versus inflammatory process of the stomach/proximal duodenum.? Recommend dedicated MRI with MRCP for further evaluation versus direct visualization with endoscopy/ERCP. ? 8 mm right middle lobe irregular pulmonary nodule.? Consider PET-CT versus sampling. ? Findings most consistent with stercoral colitis with marked colonic distention, wall thickening and surrounding inflammation of the distal sigmoid colon and rectum.? There is mild wall thickening of the distal rectum.? Recommend correlation with direct visualization and physical exam to exclude malignancy. ? Multiple remote compression fractures of the thoracic and lumbar spine. ? Additional chronic findings as above. ? Findings discussed with DANIELA Sandy of the ER by Dr. Nathan Alba over the telephone at approximately 1520 hrs AST on 01/31/22. ? ? ? Dictated by: Nathan Alba D.O. on 01/31/2022 at 14:44 ? ? Approved by: Nathan Alba D.O. on 01/31/2022 at 15:26 Extremity x-ray #1: Radiologist's Impression: PROCEDURE:? XR FOOT LT MIN 3V ? INDICATIONS:? Left foot pain, bruising ? TECHNIQUE:? 3 views of the foot were acquired.? ? COMPARISON:? None. ? FINDINGS:? ? Bones:? There is diffuse osseous demineralization.? There is mild hallux v algus.? Mild degenerative changes of the 1st metatarsophalangeal joint.? Subtle lucency alone the volar aspect of the base of the 1st proximal phalanx. ? Soft tissues:? No tibiotalar joint effusion.? Achilles tendon appears normal.? Moderate size plantar fascial insertional enthesophyte.? No focal soft tissue swelling. ? ? IMPRESSION:? ? Questionable fracture of the volar base of the proximal 1st phalanx.? Recommend correlation with point tenderness at this area. ? Mild hallux valgus and mild degenerative changes of the 1st metatarsophalangeal joint. ? ? Dictated by: Nathan Alba D.O. on 01/31/2022 at 15:57 ? ? Approved by: Nathan Alba D.O. on 01/31/2022 at 16:01 ? MDM Narrative Medical decision making narrative: Differential diagnosis to consider but limited to viral upper respiratory infection versus pneumonia versus colitis. Discussed results of CT of chest abdomen pelvis with patient and her caregiver and informed them that he would be appropriate to have the patient admitted here in the hospital. They expressed understanding and agreed to plan. <Chato Acosta MD - Last Filed: 01/31/22 21:36> Lab Data Labs: Lab Results 01/31/22 01/31/22 01/31/22 Range/Units 14:14 14:14 14:14 WBC 14.7 H (4.5-11.0) X10^3/uL RBC 3.73 L (4.0-5.2) X10^6/uL Hgb 11.1 L (12.0-16.0) g/dL Hct 33.4 L (36-46) % MCV 89.5 (80-100) fL MCH 29.7 (26-34) PG MCHC 33.2 (30-36) % RDW 14.7 (11.6-14.8) % Plt Count 225 (150-400) X10^3/uL Neut % (Auto) 85.4 H (50-75) % Lymph % (Auto) 5.2 L (25-40) % Harmon % (Auto) 8.5 (3-14) % Eos % (Auto) 0.0 L (2-4) % Baso % (Auto) 0.9 (0-2) % Neut # (Auto) 93289 H (1976-6047) /uL Lymph # (Auto) 800 L (9029-4885) /uL Harmon # (Auto) 1300 H (0-900) /uL Eos # (Auto) 0 (0-450) /uL Baso # (Auto) 100 (0-100) /uL Sodium 138 (137-145) mmol/L Potassium 4.2 (3.4-5.1) mmol/L Chloride 107 (98-107) mmol/L Carbon Dioxide 27 (22-32) mmol/L BUN 34 H (7-17) mg/dL Creatinine 0.69 (0.52-1.04) mg/dL Estimated GFR > 60 (>60) mL/min BUN/Creatinine Ratio 49.3 H (6-22) Glucose 123 H (80-110) mg/dL Lactate (0.7-2.1) mmol/L Calcium 8.4 (8.4-10.2) mg/dL Total Bilirubin 0.8 (0.2-1.3) mg/dL AST 26 (14-36) IU/L ALT 17 (<35) IU/L Alkaline Phosphatase 62 (38-126) U/L Total Creatine Kinase 48 (30-135) U/L CK-MB (CK-2) TNP CK-MB (CK-2) Rel Index TNP Troponin I < 0.012 (0.01-0.034) ng/mL Total Protein 6.2 L (6.3-8.2) g/dL Albumin 3.3 L (3.5-5.0) g/dL Globulin 2.9 (1.7-4.1) g/dL Albumin/Globulin Ratio 1.1 (1.0-2.8) Lipase 30 (23-300) U/L Procalcitonin 0.21 (<0.5) ng/mL SARS-CoV-2 (PCR) (Negative) 01/31/22 01/31/22 Range/Units 14:14 16:18 WBC (4.5-11.0) X10^3/uL RBC (4.0-5.2) X10^6/uL Hgb (12.0-16.0) g/dL Hct (36-46) % MCV (80-100) fL MCH (26-34) PG MCHC (30-36) % RDW (11.6-14.8) % Plt Count (150-400) X10^3/uL Neut % (Auto) (50-75) % Lymph % (Auto) (25-40) % Harmon % (Auto) (3-14) % Eos % (Auto) (2-4) % Baso % (Auto) (0-2) % Neut # (Auto) (7049-6569) /uL Lymph # (Auto) (8795-5557) /uL Harmon # (Auto) (0-900) /uL Eos # (Auto) (0-450) /uL Baso # (Auto) (0-100) /uL Sodium (137-145) mmol/L Potassium (3.4-5.1) mmol/L Chloride (98-107) mmol/L Carbon Dioxide (22-32) mmol/L BUN (7-17) mg/dL Creatinine (0.52-1.04) mg/dL Estimated GFR (>60) mL/min BUN/Creatinine Ratio (6-22) Glucose (80-110) mg/dL Lactate 0.8 (0.7-2.1) mmol/L Calcium (8.4-10.2) mg/dL Total Bilirubin (0.2-1.3) mg/dL AST (14-36) IU/L ALT (<35) IU/L Alkaline Phosphatase (38-126) U/L Total Creatine Kinase (30-135) U/L CK-MB (CK-2) CK-MB (CK-2) Rel Index Troponin I (0.01-0.034) ng/mL Total Protein (6.3-8.2) g/dL Albumin (3.5-5.0) g/dL Globulin (1.7-4.1) g/dL Albumin/Globulin Ratio (1.0-2.8) Lipase (23-300) U/L Procalcitonin (<0.5) ng/mL SARS-CoV-2 (PCR) Negative (Negative) Discharge Plan Departure Patient Disposition: Admitted as Observation Clinical Impression: Abdominal pain, Stercoral colitis, Diarrhea Admit Date/Time: 01/31/22 18:01 Admit Provider: Sonia Ya <Chato Acosta MD - Last Filed: 01/31/22 21:36> Cosign ED Attending Shaniaature Attestation: I was immediately available for consultation of this patient was seen and evaluated by the APC in the department.
--- NOTE | 2022-01-31 15:45 | DI.RAD.S_ITS ---
PROCEDURE: XR FOOT LT MIN 3V INDICATIONS: Left foot pain, bruising TECHNIQUE: 3 views of the foot were acquired. COMPARISON: None. FINDINGS: Bones: There is diffuse osseous demineralization. There is mild hallux valgus. Mild degenerative changes of the 1st metatarsophalangeal joint. Subtle lucency alone the volar aspect of the base of the 1st proximal phalanx. Soft tissues: No tibiotalar joint effusion. Achilles tendon appears normal. Moderate size plantar fascial insertional enthesophyte. No focal soft tissue swelling. IMPRESSION: Questionable fracture of the volar base of the proximal 1st phalanx. Recommend correlation with point tenderness at this area. Mild hallux valgus and mild degenerative changes of the 1st metatarsophalangeal joint. Dictated by: Nathan Alba D.O. on 01/31/2022 at 15:57 Approved by: Nathan Alba D.O. on 01/31/2022 at 16:01
[2022-01-31] MEDS: SODIUM CHLORIDE 0.9% 1,000 ML 1000 ML IV (15:58)
[2022-01-31] MEDS: MORPHINE 4 MG/ML INJ IV (15:58)
[2022-01-31 18:24] LABS: COVID19 -Nasal RAPID Negative (Negative)
--- NOTE | 2022-01-31 18:25 | PC.NURSE ---
patient has not vomited since under my care that I have been made aware of.
--- NOTE | 2022-01-31 19:51 | DI.CT.S_ITS ---
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 TECHNIQUE: Noncontrast 4.5 mm thick angled axial sections acquired from the foramen magnum to the vertex, with coronal and sagittal reformats. For radiation dose reduction, the following was used: automated exposure control, adjustment of mA and/or kV according to patient size. COMPARISON: None. FINDINGS: Image quality: There is mild motion artifact as well as streak artifact from patient's right earing. CSF spaces: Basal cisterns are patent. No extra-axial fluid collections. There is mild cerebral volume loss, with resultant ventricular and sulcal prominence. Brain: No intracranial hemorrhage, mass, or mass effect. There are subcortical, periventricular and deep white matter hypodensities consistent with mild to moderate chronic small vessel ischemic changes. The prince-white matter junction appears preserved. There is intracranial internal carotid artery atherosclerosis. Skull and face: Calvarium and visualized facial bones appear intact, without suspicious lesions. Sinuses: Visualized sinuses and mastoids are clear. IMPRESSION: 1. No acute intracranial abnormality. 2. No definite mass or mass effect. If there is persistent clinical suspicion for metastatic disease, recommend further evaluation with a contrast enhanced brain MRI. Dictated by: Tu Ugarte M.D. on 01/31/2022 at 20:15 Approved by: Tu Ugarte M.D. on 01/31/2022 at 20:19
[2022-01-31 21:48] VITALS: BP 180/78; PULSE 71; RESP 16; O2SAT 94
--- NOTE | 2022-01-31 22:14 | PC.NURSE ---
while helping patient earlier doing jurgen-care, urgent care nurse practitioner in room stated patient had broken left hip. pt agreed with this. and had trouble and more pain moving left side. pt still requested bedpan and was able to tolerate movement to get on recinos.
[2022-01-31 22:21] VITALS: BMI 26.2
[2022-01-31 22:30] VITALS: BP 158/54; PULSE 71; RESP 18; TEMP 38; O2SAT 94
--- NOTE | 2022-01-31 22:40 | DI.MRI.S_ITS ---
PROCEDURE: MR HEAD/BRAIN WO/W CON INDICATIONS: confusion, new metastatic ca TECHNIQUE: Noncontrast axial T1 spin echo, axial T2 fast spin echo, sagittal and axial FLAIR, coronal T2 fast spin echo, axial gradient echo, axial diffusion and ADC through the brain. After the administration of contrast, axial and coronal and sagittal 3D VIBE or T1 spin echo with fat saturation through the brain. COMPARISON: [facility], CT, CT HEAD/BRAIN WO CON, 01/31/2022, 19:55. FINDINGS: Image quality: Degraded by patient motion artifact. CSF Spaces: Basal cisterns are patent. No extra-axial fluid collections. Ventricles are normal in size and shape. Brain: No midline shift. No intracranial bleeds or masses. No abnormal intracranial enhancement. There is [id number] diffuse cerebral volume loss. There are mild periventricular and subcortical white matter chronic microvascular ischemic changes. The brainstem appears normal. Diffusion-weighted images demonstrate no acute ischemic insults. No chronic ischemic insults. Normal intravascular flow voids are present. Dural sinuses demonstrate normal postcontrast enhancement. Skull and face: Calvarial marrow is normal in signal. Orbits appear normal. Sinuses: Sinuses and mastoids appear clear. IMPRESSION: 1. No acute intracranial disease process. 2. No abnormal intracranial mass or suspicious postcontrast enhancement. 3. [id number] diffuse cerebral volume loss. 4. Mild periventricular and subcortical white matter chronic microvascular ischemic changes. Dictated by: Nga Mir MD, PhD on 02/01/2022 at 11:40 Approved by: Nga Mir MD, PhD on 02/01/2022 at 11:44
--- NOTE | 2022-01-31 22:40 | DI.MRI.S_ITS ---
PROCEDURE: MR ABDOMEN WO/W CON INDICATIONS: confusion, new metastatic ca TECHNIQUE: Coronal HASTE, axial 2D FLASH in- and [id number]; axial breath-hold T2 FSE. Dynamic axial VIBE during the administration of contrast; post-contrast coronal VIBE or 2D FLASH with fat saturation from the hepatic dome to the iliac crests. Optional diffusion weighted imaging and ADC may be performed. COMPARISON: [facility], [place], [place] PET CT FUSION SKULL 2 THIGH, 05/10/2018, 15:38. [facility], CT, CT CHEST ABD PEL W CON, 01/31/2022, 15:05. FINDINGS: Image quality: Severely compromised by motion artifact. Per technologist notes, the patient was not able to follow breathing instructions. Lung bases: Small bilateral pleural effusions, right larger than left. Probable increase in size since the prior CT allowing for differences in modality. Solid organs: No definite suspicious liver lesion identified allowing for substantial motion artifact. Gallbladder is absent. Dilation of the extrahepatic bile duct present as before, better visualized on recent CT. On the current exam, the bile duct measures approximately 12 mm at the level of the belem hepatis, not substantially changed. Left-sided intrahepatic pneumobilia present as before. Dilation of the main pancreatic duct is present measuring up to 6 mm at the pancreatic head. Possible 1.1 cm lesion present at the ampulla (for example coronal T2 haste series 3, image 16) versus artifact. 9 mm cyst at the pancreatic uncinate process (axial T2 haste series 4, image 20). Spleen is normal in size. No adrenal nodules. No hydronephrosis. Nodes and vessels: No definite retroperitoneal or mesenteric adenopathy by size criteria. Aorta and inferior vena cava are normal in size. Bowel and peritoneum: Unenhanced bowel loops are normal in caliber. Wall thickening/edema of the duodenum likely present (for example series 3, image 16). Bones and soft tissues: Vertebral body compression fracture and has vertebroplasty cement have better evaluated on prior CT. IMPRESSION: 1. Markedly compromised exam secondary to motion artifact. 2. Mild biliary and pancreatic ductal dilation present, non-specific. There is an equivocal lesion at the ampulla versus artifact. Evaluation with endoscopy may be helpful. Differential considerations would also include papillary stenosis, sphincter of Oddi dysfunction, or occult choledocholith. 3. Wall thickening and edema of the duodenum present. Could indicate a nonspecific duodenitis. Correlation for peptic ulcer disease may also be helpful. Unclear if this is contributing or related to biliary and pancreatic ductal dilation above. 4. Subcentimeter pancreatic cyst at the uncinate process. This finding is of doubtful clinical significance given patient comorbidities but can be followed on future follow-up exams. Dictated by: Corbin Caballero M.D. on 02/01/2022 at 13:05 Approved by: Corbin Caballero M.D. on 02/01/2022 at 13:34
--- NOTE | 2022-01-31 22:49 | DI.RAD.S_ITS ---
PROCEDURE: XR HIP LT 1V INDICATIONS: hip pain, ? fracture TECHNIQUE: Single view of the hip were acquired. COMPARISON: None. FINDINGS: Bones: Limited single view of the left hip demonstrates no definite fractures or dislocations. No suspicious bony lesions. The visualized pelvic ring appears intact. Soft tissues: No suspicious soft tissue calcifications or masses. IMPRESSION: 1. Limited study demonstrates no definite fracture or dislocation. If clinical concern persists, further evaluation may be obtained with CT. Dictated by: Tu Ugarte M.D. on 02/01/2022 at 1:13 Approved by: Tu Ugarte M.D. on 02/01/2022 at 1:14
--- NOTE | 2022-01-31 23:41 | PC.NURSE ---
Pt came in with a bag full of medications, including a pill box and an old medication list from 2019. Spoke to MAHI Shah over the phone and she herself isn't sure with medication patients take. Will follow up with pt PCP in the and [facility] in [place].
[2022-02-01] VITALS (9 sets, daily range): BP systolic 112–157; BP diastolic 65–73; PULSE 64–77; RESP 14–20; TEMP 36.3–38; O2SAT 95–98
[2022-02-01] MEDS: ACETAMINOPHEN 325 MG TABLET 650 MG PO (00:04)
[2022-02-01] MEDS: MORPHINE 2 MG/ML INJ IV ×5 (00:05→22:58)
[2022-02-01] MEDS: ONDANSETRON 4 MG/2 ML INJ IV (00:05)
[2022-02-01] MEDS: SODIUM CHLORIDE 0.9% 1,000 ML 100 ML IV ×2 (00:14→22:59)
[2022-02-01] MEDS: MEROPENEM 1 GM in SODIUM CHLORIDE 0.9% 100 ML IV ×4 (00:28→23:00)
[2022-02-01 03:01] LABS: COVID19 -Nasal RAPID Negative (Negative)
[2022-02-01 03:06] LABS: Appearance Urine UA CLEAR; Glucose Urine UA NEGATIVE (Negative); Ketones Urine UA 1+ (NEGATIVE); Leukocyte Esterase Urine UA NEGATIVE (NEGATIVE); Nitrite Urine UA NEGATIVE (Negative); Occult Blood Urine UA 2+ (Negative); Protein Urine UA TRACE (Negative); Specific Gravity Urine UA 1.015 (1.000-1.035)
[2022-02-01 03:08] LABS: Bilirubin Urine UA Negative (NEGATIVE); Color Urine UA Dark Yellow
[2022-02-01 03:09] LABS: RBC Urine 1-5/HPF (0-5/HPF); Squamous Epithelial Cell Urine 0-1 /HPF (0-5/HPF); Transitional Epi Cells Urine 0-1/HPF (0-5/HPF); WBC Urine None Seen (0-5/HPF)
[2022-02-01 03:10] LABS: Bacteria Urine Few (2-10); Culture Indicated Urine Cult Not Indicated
--- NOTE | 2022-02-01 06:11 | P.HP_ITS ---
History of Present Illness History of Present Illness Date Patient Seen: 01/31/22 Time Patient Seen: 22:00 Chief complaint: fatigue Narrative: Ms. Rangel is a 76W with H depression, previous suicide attempt who presents to the hospital with weakness and diarrhea. The patient is quite confused and forgetful, has difficulty finding words. She has a quite difficult time relaying what she has been feeling aside from the last few days she has decreased appetite and diarrhea that is not bloody. However after speaking with her friend, her friend notes that she has had a more progressive decline. The patient in her opinion, can not care for herself, she lives alone, with some intermittent caregiver support. She has noted her mental faculties start to worsen over a period of months. She has become forgetful and altered. She has had issues with falls, and possibly a fall earlier this month where she injured her hip and was at [facility] with concern for left hip fracture. She has had long time issues with mental health and was in a psych facility earlier this year. She is not sure about all the details of Ms. Rangel's health however. In the ED workup was done, vitals were unremarkable except for high blood pressure. Labs notable for WBC 14.7, hgb 11.1, creatinine 0.69. Troponin negative. Procalcitonin 0.21. Lactate 0.8. Chest xray showed stable pathcy opacities through the right greater than left lungs. CT shows nonspecific soft tissue attenuation around the head of the pancreas, as well as common bile duct dilation and intrahepatic duct dilation. 8mm right middle lobe irregular pulmonary nodule is noted. She also is noted to have colon distention, wall thickening and surrounding inflammation with wall thickening of the distal rectum. Also multiple compression fractures. Foot xray shows possible 1st phalanx fracture. She was admitted for further treatment. Patient History Medical History Anxiety Asthma HLD (hyperlipidemia) Osteoarthritis PTSD (post-traumatic stress disorder) Spinal fracture Surgical History Hx of knee surgery Family & Social History Social History: household members friend(s) Prior Living Arrangements Apartment/Condo Safety & Behavioral: Feels Safe in Current Yes Environment Been Physically Hurt or No Threatened By a Person Tobacco & Substance use: Smoking Status Former smoker alcohol intake never Substance Use Type does not use Meds Home Medications and Allergies Home Medications Medication Instructions Recorded Confirmed Type albuterol sulfate 90 mcg/actuation 1 - 2 puff INH PRN PRN Shortness 10/18/17 01/20/22 History aerosol inhaler (Ventolin HFA) Of Breath ##0 alendronate 70 mg tablet 70 mg PO QWEEK ##0 10/18/17 01/20/22 History atorvastatin 40 mg tablet 40 mg PO DAILY 10/19/21 01/20/22 History diltiazem HCl 240 mg 240 mg PO DAILY 10/19/21 01/20/22 History capsule,extended release 24 hr (Cardizem CD) divalproex 125 mg tablet,delayed 375 mg PO TID 10/19/21 01/20/22 History release gabapentin 300 mg capsule 600 mg PO TID #0 caps 10/19/21 01/20/22 History (Neurontin) hydrocodone 10 mg-acetaminophen 1 tab PO Q4-6H PRN Pain 10/19/21 01/20/22 Histor y 325 mg tablet mirtazapine 30 mg tablet 30 mg PO DAILY 10/19/21 01/20/22 History temazepam 15 mg capsule 30 mg PO BEDTIME PRN Sleep 10/19/21 01/20/22 History estradiol 0.01% (0.1 mg/gram) 0.5 g vaginal BEDTIME #42.5 grams 01/06/22 01/20/22 Rx vaginal cream (Estrace) Allergies Allergy/AdvReac Type Severity Reaction Status Date / Time amoxicillin [AMOXICILLIN] AdvReac Unknown VERY Verified 01/31/22 15:03 NAUSEOUS. IT HAPPENED SO LONG AGO CAN'T REMEMBER CARLOS clavulanic acid AdvReac Unknown NAUSEA Verified 01/31/22 15:03 [From AUGMENTIN] Penicillins [PENICILLINS] AdvReac Unknown NAUSEA Verified 01/31/22 15:03 tetracycline [TETRACYCLINE] AdvReac Unknown NAUSEA Verified 01/31/22 15:03 Review of Systems Review of Systems Narrative: 14 systems reviewed and negative aside from what is noted in HPI Exam Vital Signs (past 8 hours): - 01/31/22 22:30 02/01/22 00:04 02/01/22 01:15 Temperature 100.4 F H 100.4 F H 99.0 F Pulse Rate 71 Respiratory Rate 18 Blood Pressure 158/54 H Pulse Oximetry 94 Oxygen Flow Rate 0 02/01/22 00:00 02/01/22 05:31 Temperature 97.4 F L Pulse Rate 72 71 Respiratory Rate 17 16 Blood Pressure 112/66 Pulse Oximetry 98 98 Oxygen Flow Rate 2 2 Oxygen Delivery Method Nasal Cannula Oxygen Flow Rate 2 Narrative Exam Narrative: GEN: no acute distress HEENT: dry mucous membranes, PERRL NECK: trachea midline, no jVD CV: regular rate and rhythm, no murmurs PULM: coarse breath sounds and slight wheeze bilaterally ABD: soft, generalized tenderness, no rebound guarding Rectal: deferred per patient EXT: warm and well perfused with no edema NEURO: awake, confused, word finding difficulties, no extremity weakness noted, Objective Labs Result Diagrams: 01/31/22 14:14 01/31/22 14:14 Labs: Laboratory Results - last 24 hr 01/31/22 01/31/22 01/31/22 14:14 14:14 14:14 WBC 14.7 H RBC 3.73 L Hgb 11.1 L Hct 33.4 L MCV 89.5 MCH 29.7 MCHC 33.2 RDW 14.7 Plt Count 225 Neut % (Auto) 85.4 H Lymph % (Auto) 5.2 L [place] % (Auto) 8.5 Eos % (Auto) 0.0 L Baso % (Auto) 0.9 Neut # (Auto) 37140 H Lymph # (Auto) 800 L [place] # (Auto) 1300 H Eos # (Auto) 0 Baso # (Auto) 100 Sodium 138 Potassium 4.2 Chloride 107 Carbon Dioxide 27 BUN 34 H Creatinine 0.69 Estimated GFR > 60 BUN/Creatinine Ratio 49.3 H Glucose 123 H Lactate Calcium 8.4 Total Bilirubin 0.8 AST 26 ALT 17 Alkaline Phosphatase 62 Total Creatine Kinase 48 CK-MB (CK-2) TNP CK-MB (CK-2) Rel Index TNP Troponin I < 0.012 Total Protein 6.2 L Albumin 3.3 L Globulin 2.9 Albumin/Globulin Ratio 1.1 Lipase 30 Procalcitonin 0.21 Urine Color Urine Appearance Urine pH Ur Specific [place] Urine Protein Urine Glucose (UA) Urine Ketones Urine Occult Blood Urine Nitrate Urine Bilirubin Urine Urobilinogen Ur Leukocyte Esterase Urine RBC Urine WBC Ur Squamous Epith Cells Ur Transition Epith Cell Urine Bacteria Ur Culture Indicated? SARS-CoV-2 (PCR) 01/31/22 01/31/22 02/01/22 14:14 16:18 02:40 WBC RBC Hgb Hct MCV MCH MCHC RDW Plt Count Neut % (Auto) Lymph % (Auto) [place] % (Auto) Eos % (Auto) Baso % (Auto) Neut # (Auto) Lymph # (Auto) [place] # (Auto) Eos # (Auto) Baso # (Auto) Sodium Potassium Chloride Carbon Dioxide BUN Creatinine Estimated GFR BUN/Creatinine Ratio Glucose Lactate 0.8 Calcium Total Bilirubin AST ALT Alkaline Phosphatase Total Creatine Kinase CK-MB (CK-2) CK-MB (CK-2) Rel Index Troponin I Total Protein Albumin Globulin Albumin/Globulin Ratio Lipase Procalcitonin Urine Color Urine Appearance Urine pH Ur Specific [place] Urine Protein Urine Glucose (UA) Urine Ketones Urine Occult Blood Urine Nitrate Urine Bilirubin Urine Urobilinogen Ur Leukocyte Esterase Urine RBC Urine WBC Ur Squamous Epith Cells Ur Transition Epith Cell Urine Bacteria Ur Culture Indicated? SARS-CoV-2 (PCR) Negative Negative 02/01/22 03:00 WBC RBC Hgb Hct MCV MCH MCHC RDW Plt Count Neut % (Auto) Lymph % (Auto) [place] % (Auto) Eos % (Auto) Baso % (Auto) Neut # (Auto) Lymph # (Auto) [place] # (Auto) Eos # (Auto) Baso # (Auto) Sodium Potassium Chloride Carbon Dioxide BUN Creatinine Estimated GFR BUN/Creatinine Ratio Glucose Lactate Calcium Total Bilirubin AST ALT Alkaline Phosphatase Total Creatine Kinase CK-MB (CK-2) CK-MB (CK-2) Rel Index Troponin I Total Protein Albumin Globulin Albumin/Globulin Ratio Lipase Procalcitonin Urine Color Dark yellow Urine Appearance Clear Urine pH 5.0 Ur Specific [place] 1.015 Urine Protein Trace H Urine Glucose (UA) Negative Urine Ketones 1+ H Urine Occult Blood 2+ H Urine Nitrate Negative Urine Bilirubin Negative Urine Urobilinogen 1.0 Ur Leukocyte Esterase Negative Urine RBC 1-5/hpf Urine WBC None seen Ur Squamous Epith Cells 0-1 /hpf Ur Transition Epith Cell 0-1/hpf Urine Bacteria Few (2-10) H Ur Culture Indicated? Cult not indicated SARS-CoV-2 (PCR) Assessment & Plan Assessment & Plan narrative: Ms. Rangel is a 76W with PMH depression 1. Concern for metastatic cancer -noted on imaging to have abnormal findings in the CT abdomen with colon wall thickening, pancreatic abnormality, biliary duct system dilation, and lung nodule raising concern for malignancy -ordered for MRCP -LFTs normal, continue to trend -will need discussion with patient and POA about goals of care and desire for workup 2. Fever, Leukocytosis -patient developed fever once admitted to hospital, WBC elevated -etiology is possible infection of biliary system or possible colitis -started IV fluids -lactate and blood pressure normal -blood cultures sent -UA sent, doubt urine infection -meropenem started to treat for intra-abdominal source of infection 3. Acute encephalopathy, metabolic -etiology possibly secondary to infection -however friend notes mental decline over last few months -concern for possible mets vs old CVA -MRI head to eval further 4. Possible left 1st phalanx foot fracture -symptomatic treatment with pain medications 5. Compression fractures -symptomatic treatment with pain medications 6. Tremors -chronic per patient -etiology not clear to me currently -possibly due to acute illness, but consider other etiology such as parkinsons Patient prognosis is poor. High concern for malignancy as etiology. Per friend she doubts patient would want very aggressive intervention, but this has not been discussed in detail. Patient lives alone, has no family, friend is unable to care for her, but she believes she can not live at home alone CODE: Full Proxy: Alyssa Ramirez, friend I have utilized all available resources to reconcile the patient's home medications. Time Spent With Patient Critical Care time: I spent a total of [] minutes of critical care time on this patient's care today; this time is exclusive of procedural time. Quality VTE Deep Vein Thrombosis/Pulmonary Embolism Present on Admission: No MIPS - Admit I confirm the patient?s Advance Care Plan is present, Code status is documented, Surrogate decision maker is in patient?s record [If Yes, STOP here]: Yes
[2022-02-01 07:06] LABS: Add Manual Diff / Slide Review NO; Basophils Absolute Auto 0 /uL (0-100); Basophils Percent Auto 0.1 % (0-2); Eosinophils Absolute Auto 0 /uL (0-450); Eosinophils Percent Auto 0.1 % (2-4); Hemoglobin 10.8 g/dL (12.0-16.0); Lymphocytes Absolute Auto 800 /uL (1100-4500); Lymphocytes Percent Auto 5.6 % (25-40); Mean Corpuscular HGB Conc 32.8 % (30-36); Mean Corpuscular Hemoglobin 29.6 PG (26-34); Mean Corpuscular Volume 90.1 fL (80-100); Monocytes Absolute Auto 1200 /uL (0-900); Monocytes Percent Auto 7.9 % (3-14); Neutrophils Absolute Auto 12500 /uL (1500-7000); Neutrophils Percent Auto 86.3 % (50-75); Platelet Count 223 X10^3/uL (150-400); Red Blood Cell Count 3.67 X10^6/uL (4.0-5.2); Red Cell Distribution Width 15.2 % (11.6-14.8); White Blood Cell Count 14.5 X10^3/uL (4.5-11.0)
[2022-02-01 07:21] LABS: Alanine Aminotransferase 26 IU/L (<35); Albumin 2.9 g/dL (3.5-5.0); Alkaline Phosphatase 64 U/L (38-126); Aspartate Aminotransferase 40 IU/L (14-36); BUN Creatinine Ratio 42.9 (6-22); Bilirubin Total 0.4 mg/dL (0.2-1.3); Bilirubin Unconjugated 0.3 mg/dL (0.0-1.1); Blood Urea Nitrogen 27 mg/dL (7-17); Calcium 7.9 mg/dL (8.4-10.2); Carbon Dioxide 26 mmol/L (22-32); Chloride 107 mmol/L (98-107); Estimated Glomerular Filt Rate > 60 mL/min (>60); Globulin 2.9 g/dL (1.7-4.1); Glucose 153 mg/dL (80-110); HEMOLYSIS < 15 (0-50); Potassium 3.9 mmol/L (3.4-5.1); Sodium 138 mmol/L (137-145); Total Protein 5.8 g/dL (6.3-8.2)
--- NOTE | 2022-02-01 08:11 | PM.PN.1 ---
Subjective Subjective Date Patient Seen: 02/01/22 Interval history: Hospitalist follow-up. Patient main complaint today is back pain and abdominal gas. Is passing gas per rectum. Otherwise no pain. Not feeling shortness of breath. No chest pain or palpitations. Abdominal discomfort but not complaining of pain. Not complaining of diarrhea. Not complaining of fever chills. Has tremor that is chronic. Able to move all extremities. No lower extremity edema. Exam Vital Signs (past 8 hours): - 02/01/22 01:15 02/01/22 05:31 Temperature 99.0 F 97.4 F L Pulse Rate 71 Respiratory Rate 16 Blood Pressure 112/66 Pulse Oximetry 98 Oxygen Flow Rate 2 Oxygen Delivery Method Nasal Cannula Oxygen Flow Rate 2 Narrative Exam Narrative: Exam Narrative: GEN: no acute distress HEENT: wet mucous membranes, PERRL NECK: trachea midline, no jVD CV: regular rate and rhythm, no murmurs PULM: Adequate air entry throughout. Intermittent wheezing right chest that is cleared with repeated breaths. ABD: soft, generalized tenderness, no rebound guarding. Increased bowel sounds. Rectal: Not done. Patient's preference. EXT: warm and well perfused with no edema NEURO: awake, able to carry on a conversation with full sentences, somewhat vague on certain areas of questioning, no extremity weakness noted, Objective Labs Result Diagrams: 02/01/22 06:51 02/01/22 06:51 Labs: Laboratory Results - last 24 hr 01/31/22 01/31/22 01/31/22 14:14 14:14 14:14 WBC 14.7 H RBC 3.73 L Hgb 11.1 L Hct 33.4 L MCV 89.5 MCH 29.7 MCHC 33.2 RDW 14.7 Plt Count 225 Neut % (Auto) 85.4 H Lymph % (Auto) 5.2 L [place] % (Auto) 8.5 Eos % (Auto) 0.0 L Baso % (Auto) 0.9 Neut # (Auto) 66987 H Lymph # (Auto) 800 L [place] # (Auto) 1300 H Eos # (Auto) 0 Baso # (Auto) 100 Sodium 138 Potassium 4.2 Chloride 107 Carbon Dioxide 27 BUN 34 H Creatinine 0.69 Estimated GFR > 60 BUN/Creatinine Ratio 49.3 H Glucose 123 H Lactate Calcium 8.4 Total Bilirubin 0.8 Conjugated Bilirubin Unconjugated Bilirubin AST 26 ALT 17 Alkaline Phosphatase 62 Total Creatine Kinase 48 CK-MB (CK-2) TNP CK-MB (CK-2) Rel Index TNP Troponin I < 0.012 Total Protein 6.2 L Albumin 3.3 L Globulin 2.9 Albumin/Globulin Ratio 1.1 Lipase 30 Procalcitonin 0.21 Urine Color Urine Appearance Urine pH Ur Specific [place] Urine Protein Urine Glucose (UA) Urine Ketones Urine Occult Blood Urine Nitrate Urine Bilirubin Urine Urobilinogen Ur Leukocyte Esterase Urine RBC Urine WBC Ur Squamous Epith Cells Ur Transition Epith Cell Urine Bacteria Ur Culture Indicated? SARS-CoV-2 (PCR) 01/31/22 01/31/22 02/01/22 14:14 16:18 02:40 WBC RBC Hgb Hct MCV MCH MCHC RDW Plt Count Neut % (Auto) Lymph % (Auto) [place] % (Auto) Eos % (Auto) Baso % (Auto) Neut # (Auto) Lymph # (Auto) [place] # (Auto) Eos # (Auto) Baso # (Auto) Sodium Potassium Chloride Carbon Dioxide BUN Creatinine Estimated GFR BUN/Creatinine Ratio Glucose Lactate 0.8 Calcium Total Bilirubin Conjugated Bilirubin Unconjugated Bilirubin AST ALT Alkaline Phosphatase Total Creatine Kinase CK-MB (CK-2) CK-MB (CK-2) Rel Index Troponin I Total Protein Albumin Globulin Albumin/Globulin Ratio Lipase Procalcitonin Urine Color Urine Appearance Urine pH Ur Specific [place] Urine Protein Urine Glucose (UA) Urine Ketones Urine Occult Blood Urine Nitrate Urine Bilirubin Urine Urobilinogen Ur Leukocyte Esterase Urine RBC Urine WBC Ur Squamous Epith Cells Ur Transition Epith Cell Urine Bacteria Ur Culture Indicated? SARS-CoV-2 (PCR) Negative Negative 02/01/22 02/01/22 02/01/22 03:00 06:51 06:51 WBC 14.5 H RBC 3.67 L Hgb 10.8 L Hct 33.0 L MCV 90.1 MCH 29.6 MCHC 32.8 RDW 15.2 H Plt Count 223 Neut % (Auto) 86.3 H Lymph % (Auto) 5.6 L [place] % (Auto) 7.9 Eos % (Auto) 0.1 L Baso % (Auto) 0.1 Neut # (Auto) 99255 H Lymph # (Auto) 800 L [place] # (Auto) 1200 H Eos # (Auto) 0 Baso # (Auto) 0 Sodium 138 Potassium 3.9 Chloride 107 Carbon Dioxide 26 BUN 27 H Creatinine 0.63 Estimated GFR > 60 BUN/Creatinine Ratio 42.9 H Glucose 153 H Lactate Calcium 7.9 L Total Bilirubin 0.4 Conjugated Bilirubin 0.0 Unconjugated Bilirubin 0.3 AST 40 H ALT 26 Alkaline Phosphatase 64 Total Creatine Kinase CK-MB (CK-2) CK-MB (CK-2) Rel Index Troponin I Total Protein 5.8 L Albumin 2.9 L Globulin 2.9 Albumin/Globulin Ratio 1.0 Lipase Procalcitonin Urine Color Dark yellow Urine Appearance Clear Urine pH 5.0 Ur Specific [place] 1.015 Urine Protein Trace H Urine Glucose (UA) Negative Urine Ketones 1+ H Urine Occult Blood 2+ H Urine Nitrate Negative Urine Bilirubin Negative Urine Urobilinogen 1.0 Ur Leukocyte Esterase Negative Urine RBC 1-5/hpf Urine WBC None seen Ur Squamous Epith Cells 0-1 /hpf Ur Transition Epith Cell 0-1/hpf Urine Bacteria Few (2-10) H Ur Culture Indicated? Cult not indicated SARS-CoV-2 (PCR) PFSH Medical History Anxiety Asthma HLD (hyperlipidemia) Osteoarthritis PTSD (post-traumatic stress disorder) Spinal fracture Surgical History Hx of knee surgery Social History household members: friend(s) Smoking Status: Former smoker alcohol intake: never Assessment & Plan Assessment & Plan narrative: 1. Concern for metastatic cancer MRCP pending 2. Fever, Leukocytosis Currently on meropenem. Temperature stable today. White blood count slightly decreased. Continue to follow. 3. Acute encephalopathy, metabolic MRI head is pending. Patient more interactive and full clear sentences today. Several of her medications that the patient was on have not been continued and these include divalproex, hydrocodone, mirtazapine, gabapentin, temazepam. Holding these could have benefit the patient. However need to clarify the need reason for divalproex and reinitiate if the patient needs to be on this medication. 4. Possible left 1st phalanx foot fracture Continue symptomatic treatment with pain medications 5. Compression fractures-reason for back pain Continue symptomatic treatment with pain medications 6. Tremors Chronic with no treatment. Patient indicates the only thing that he can settle the tremors are tranquilizers. Continue to evaluate the patient with imaging, tests and examination. CODE: Full Proxy: fuad Hope Time Spent With Patient Critical Care time: I spent a total of [] minutes of critical care time on this patient's care today; this time is exclusive of procedural time. Quality VTE Deep Vein Thrombosis/Pulmonary Embolism Present on Admission: No
--- NOTE | 2022-02-01 10:31 | OT.IPNOTE ---
Ot eval and treat order received. Pt with probable metastatic CA per notes. Discussed at rounds and OT/PT to hold till POC is established as pt maybe appropriate for hospice. Will follow up tomorrow.
--- NOTE | 2022-02-01 10:58 | PT-IP ANOTE ---
Pt was discussed at AM interdisciplinary rounds. Pt has probable metastatic cancer; goals of care have not yet been established. Will continue to follow as plan unfolds but PT evaluation on hold at this time.
--- NOTE | 2022-02-01 13:42 | CM.DANOTE ---
Addendum entered by ELISEO Prieto 02/01/22 15:41: ADD: Pt's friend/DPOA Alyssa was bedside and SW just missed her but discussion between Cori and pt and they would like to pursue SNF at d/c. SW provided the SNF Choice list to pt and starred the SNF's that accept COVID waiver as pt still OBS Status and pt confirms that she has 2 COVID vaccines and 1 booster shot and friend Alyssa may need to get a copy of her COVID vaccination card. SW already made referral to [facility], and now made referral to [facility] and [facility] anticipating pt will need to go under COVID waiver. [facility] does not take COVID waiver. PASRR needed for SNF. BF Addendum entered by ELISEO Prieto 02/01/22 14:18: ADD: Pt has a hx of SNF at [facility] this year and SW made initial referral and requested review and updated on possible OBS Status and unclear POC and January confirms she will review and follow to determine needs in case SNF needed. SW also faxed new referral to [facility] as back up to review although pt may be OBS and then likely could not go to [facility]. BF Original Note: Patient is a 76 yo female who was admitted on 01/31/22 for Fatigue. Pt has [facility] and [facility] for insurance and her PCP is Boni Truong. EMR was reviewed. Per MD, pt with a hx of suicidal ideation and signficant mental health medications and was admitted for encephalopathy and possible CA mets to abdomen. MRI ordered and completed, waiting for results. PT/OT ordered but on hold until clearer medical dx to determine POC of tx vs possible Comfort Care if pt does has cancer with mets. SHEA met bedside with pt and explained role, pt somewhat [place], and remains NPO and clearly not feeling well but participated in discussion but had limited answers. Pt resides in an apt alone in [place] but has local supportive friend and DPOA Jacki [phone] and also has caregivers in the home for additional assist. Pt confirms she has a Psychiatrist that prescribes her medications and PCP also prescribes some meds. Pt confirms she has been to SNF rehab before and would possibly consider if she continues to be below baseline and not safe for d/c home. Pt could not recall the name of the agency that her caregivers are through or if its considered [facility]. Pt agreeable with SW determining her assigned [facility] CM and if she is enrolled with [facility] and agreeable with coordination with her friend/MAHI Shah. SW called [facility] office and confirmed pt is assigned to [facility] CM Nadia Dry [phone] and spoke to Nadia who confirms pt has 166 hrs a month with CGs through [facility] and they are very flexible with pt and seems to work well and pt is very stubborn and has a hard time calling and asking for help and would qualify for higher CG hours a month but unsure if there are CG available to meet increased hours. Nadia confirms that she coordinates with pt's MAHI Shah and they have been speaking to pt about LTC at a facility like [facility] and pt is willing to consider but barrier is she wants a place that takes her cat. Pt currently has wanted to remain at home with CG assist and her cat. SW updated Nadia that pt's MRI results will help determine her medical dx and then further MD discussion with pt and DPOA towards determining POC and d/c needs. Plan: SW to follow closely for MRI results to determine better medical dx and PT/OT eval and recommendations to determine possible Comfort Care vs tx and likely need of SNF. SW to coordinate with [facility] CM Nadia, MAHI friend Alyssa, and pt. ELISEO Prieto Discharge Planning/Care Management Advanced directive, confirm from FAMILY Start: 01/31/22 22:30 Freq: Q24H Status: Active Protocol: Document 01/31/22 22:30 BECCA (Rec: 02/01/22 02:37 BECCA [id number]) Advance Directive, confirm on record Time 22:30 Person contacted pt Copy received No Time 23:00 Person contacted pt Copy received No Advanced directive available on record No CM Discharge Assessment Start: 02/01/22 13:18 Freq: Status: Active Protocol: Document 02/01/22 13:18 BF (Rec: 02/01/22 13:25 BF [id number]) Discharge Planning Assessment Assigned Office Correspondent ELISEO Simon DPOA/Assigned Designee Name friend Alyssa Ramirez Contact Information [phone] Advance Directives? Yes Advance Directives on File Yes History Provided By Patient,Medical Record Has Patient been admitted in last 30 No days? Prior Living Arrangements Apartment/Condo Household Members none Comment Has some caregivers that come into the home Independent with ADL's Yes: somewhat Is patient alert and oriented? Yes: somewhat Needs Assistance With Meal Prep,Managing Medications ,Home Chores / Shopping Caregiver for Another No Patient/Family Preference Detention Facility Comment Pending PT/OT eval and recommendations and medical dx and POC as pt MAY decide Hospice Comment [facility] [phone] Barriers to Discharge Yes Comment Unclear pt's home assist level and her needs at d/c at this time. Discharge Plan Detention Facility Transportation Arrangement Facility van if SNF vs return home via friend POV Whiteboard Updated in Patient Room with Yes name and ext. # of Office Correspondent Review Status In Process Please Provide Date Initial DC 02/01/22 Assessment Was Performed Next Review Type Continued Stay Review
[2022-02-01] MEDS: SIMETHICONE 80 MG TABLET PO (14:57)
[2022-02-02] VITALS (8 sets, daily range): BP systolic 152–169; BP diastolic 72–80; PULSE 65–77; RESP 16–18; TEMP 36.4–37.1; O2SAT 95–98; BMI 26.2
[2022-02-02 06:37] LABS: Add Manual Diff / Slide Review NO; Basophils Absolute Auto 0 /uL (0-100); Basophils Percent Auto 0.1 % (0-2); Eosinophils Absolute Auto 0 /uL (0-450); Eosinophils Percent Auto 0.2 % (2-4); Hematocrit 34.9 % (36-46); Hemoglobin 11.7 g/dL (12.0-16.0); Lymphocytes Absolute Auto 1100 /uL (1100-4500); Lymphocytes Percent Auto 7.5 % (25-40); Mean Corpuscular HGB Conc 33.7 % (30-36); Mean Corpuscular Hemoglobin 30.1 PG (26-34); Mean Corpuscular Volume 89.4 fL (80-100); Monocytes Absolute Auto 1100 /uL (0-900); Monocytes Percent Auto 7.4 % (3-14); Neutrophils Absolute Auto 12200 /uL (1500-7000); Neutrophils Percent Auto 84.8 % (50-75); Platelet Count 272 X10^3/uL (150-400); Red Cell Distribution Width 14.6 % (11.6-14.8); White Blood Cell Count 14.4 X10^3/uL (4.5-11.0)
[2022-02-02 06:55] LABS: Alanine Aminotransferase 41 IU/L (<35); Albumin 2.4 g/dL (3.5-5.0); Albumin Globulin Ratio 0.9 (1.0-2.8); Alkaline Phosphatase 69 U/L (38-126); Aspartate Aminotransferase 46 IU/L (14-36); BUN Creatinine Ratio 40.4 (6-22); Bilirubin Total 0.5 mg/dL (0.2-1.3); Blood Urea Nitrogen 19 mg/dL (7-17); Calcium 7.8 mg/dL (8.4-10.2); Carbon Dioxide 24 mmol/L (22-32); Chloride 110 mmol/L (98-107); Estimated Glomerular Filt Rate > 60 mL/min (>60); Globulin 2.6 g/dL (1.7-4.1); Glucose 117 mg/dL (80-110); HEMOLYSIS < 15 (0-50); Potassium 3.9 mmol/L (3.4-5.1); Sodium 136 mmol/L (137-145)
--- NOTE | 2022-02-02 09:00 | PM.PN.1 ---
Subjective Subjective Interval history: Hospitalist follow-up. Patient main complaint today is continues to be back pain and abdominal gas.?? Otherwise no pain. Is feeling fatigued and just wants to sleep. Not very interactive. States that she is not eating much but is drinking fine. Not feeling shortness of breath.? No chest pain or palpitations.? Abdominal discomfort but not complaining of pain.? Not complaining of diarrhea.? Not complaining of fever chills.? Has tremor that is chronic.? Able to move all extremities.? No lower extremity edema. Exam Vital Signs (past 8 hours): - 02/02/22 05:21 02/02/22 08:00 Temperature 97.8 F 98.6 F Pulse Rate 65 68 Respiratory Rate 18 18 Blood Pressure 152/77 H 169/73 H Pulse Oximetry 97 98 Oxygen Flow Rate 0 Oxygen Delivery Method Nasal Cannula Oxygen Flow Rate 0 Narrative Exam Narrative: GEN: no acute distress HEENT: wet mucous membranes, PERRL NECK: trachea midline, no jVD CV: regular rate and rhythm, no murmurs PULM:? Adequate air entry throughout.? No wheezes or crackles. ABD: soft, generalized tenderness, no rebound guarding.? Increased bowel sounds. Rectal:? Not done.? Patient's preference. EXT: warm and well perfused with no edema NEURO: Less alert today. Preferring not to interact and speaking only very quietly. Appears to have normal sensation of all extremities. Objective Labs Result Diagrams: 02/02/22 06:10 02/02/22 06:10 Labs: Laboratory Results - last 24 hr 02/02/22 02/02/22 06:10 06:10 WBC 14.4 H RBC 3.90 L Hgb 11.7 L Hct 34.9 L MCV 89.4 MCH 30.1 MCHC 33.7 RDW 14.6 Plt Count 272 Neut % (Auto) 84.8 H Lymph % (Auto) 7.5 L [place] % (Auto) 7.4 Eos % (Auto) 0.2 L Baso % (Auto) 0.1 Neut # (Auto) 93723 H Lymph # (Auto) 1100 [place] # (Auto) 1100 H Eos # (Auto) 0 Baso # (Auto) 0 Sodium 136 L Potassium 3.9 Chloride 110 H Carbon Dioxide 24 BUN 19 H Creatinine 0.47 L Estimated GFR > 60 BUN/Creatinine Ratio 40.4 H Glucose 117 H Calcium 7.8 L Total Bilirubin 0.5 AST 46 H ALT 41 H Alkaline Phosphatase 69 Total Protein 5.0 L Albumin 2.4 L Globulin 2.6 Albumin/Globulin Ratio 0.9 L PFSH Medical History Anxiety Asthma HLD (hyperlipidemia) Osteoarthritis PTSD (post-traumatic stress disorder) Spinal fracture Surgical History Hx of knee surgery Social History household members: none Smoking Status: Former smoker alcohol intake: never Assessment & Plan Assessment & Plan narrative: 1. Concern for metastatic cancer MRCP pending. Also has increased mucus plugging in the right lower lobe of lung with a new pulmonary nodule with adjacent lymph node. Possibly this would also be a source for biopsy. 2. Fever, Leukocytosis Currently on meropenem.? Temperature stable today.? White blood count consistently mildly elevated with appears to have no effect by meropenem.? Continue to follow. 3. Acute encephalopathy, metabolic MRI head shows no metastatic lesions.? Patient less interactive today. Wanting to be quiet and does sleep. Several of her medications that the patient was on have not been continued and these include divalproex, hydrocodone, mirtazapine, gabapentin, temazepam.? Holding these could have benefit the patient.? However need to clarify the need reason for divalproex and reinitiate if the patient needs to be on this medication. 4. Possible left 1st phalanx foot fracture. Questionable fracture of the volar base of the proximal 1st phalanx. Continue symptomatic treatment with pain medications 5. Compression fractures-reason for back pain Continue symptomatic treatment with pain medications 6. Tremors Chronic with no treatment.? Patient indicates the only thing that he can settle the tremors are tranquilizers. 7. Hypertension. Decrease IV fluid infusion and follow. Continue to evaluate the patient with imaging, tests and examination. CODE: Full Proxy: fuad Hope Time Spent With Patient Critical Care time: I spent a total of [] minutes of critical care time on this patient's care today; this time is exclusive of procedural time. Quality VTE Deep Vein Thrombosis/Pulmonary Embolism Present on Admission: No
[2022-02-02] MEDS: MEROPENEM 1 GM in SODIUM CHLORIDE 0.9% 100 ML IV ×3 (09:05→23:30)
[2022-02-02] MEDS: ENOXAPARIN 40 MG/0.4 ML SYRINGE SUBCUT (09:07)
--- NOTE | 2022-02-02 09:55 | OT.IPNOTE ---
Pt states in lots of pain and not feeling well as she states also has not slept well, nursing aware. Able to get pt's prior level of care, no charge.
[2022-02-02] MEDS: MORPHINE 2 MG/ML INJ IV ×3 (10:41→19:48)
[2022-02-02] MEDS: ONDANSETRON 4 MG/2 ML INJ IV (10:41)
[2022-02-02] MEDS: SODIUM CHLORIDE 0.9% 1,000 ML 50 ML IV (10:52)
--- NOTE | 2022-02-02 11:52 | PT-IP ANOTE ---
several attempts for PT eval but pt continues to refuse. stated that she has 10/10 pain on rectal area. informed nurse and pain meds were given. checked back on pt after ~ 1 hour and pt continues to refuse. will f/u.
--- NOTE | 2022-02-02 12:25 | PT.IIE ---
Surgical History (Last Reviewed 02/01/22 @ 06:12 by Brent Santiago MD) Hx of knee surgery Medical History (Last Reviewed 02/01/22 @ 06:12 by Brent Santiago MD) Anxiety Asthma HLD (hyperlipidemia) Osteoarthritis PTSD (post-traumatic stress disorder) Spinal fracture Physical Therapy Inpatient Evaluation/Re-Eval M1 PT/OT-IP Prior Functional Status Start: 02/01/22 09:06 Freq: NEEDED Status: Active Protocol: Document 02/02/22 12:25 AB (Rec: 02/02/22 13:27 AB [id number]) Medical Review Prior Functional Status Medical History Reviewed Yes Communication with confusion; able to answer questions but requires repetions to respond Mobility and Gait pt stated that she is modified independent with all mobilities and ambulation using FWW Social History Household Members none Living Arrangements Apartment/Condo Number of Floors (Floors) One Floor Number of Stairs To Enter/Railing? no steps to enter Home Environment Walk in Shower,Tub/Shower Home Equipment Front Wheel Walker,Tub Transfer Bench,Hand Held Shower Additional Social History Comment caregivers comes in on the weekdays: Mon(2 pm to 530pm); ,Tue, Fri (10 am to 530pm) to assist pt with house chores, meals M2 PT-IP Current Condition Start: 02/01/22 09:06 Freq: NEEDED Status: Active Protocol: Document 02/02/22 12:25 AB (Rec: 02/02/22 13:27 AB [id number]) Physical Therapy Current Condition Current Condition Evaluation Date 02/02/22 Treatment Diagnosis possible CA w/ mets; metab. encephalopathy; L2 comp. fx; diff. in walking Onset Date 01/31/22 M3 PT-IP Subjective Start: 02/01/22 09:06 Freq: NEEDED Status: Active Protocol: Document 02/02/22 12:25 AB (Rec: 02/02/22 13:27 AB [email or web address]) Subjective Physical Therapy Visit Type Type Initial Evaluation Visit Start Time 12:25 Visit Stop Time 12:55 Total Visit Minutes 30 Number of ASSEMBLY DEPARTMENT SUPERVISOR Visits 0 Therapy Pain Assessment Pain When Pain Assessed At Rest Pain Present Pain Present Pain Reported Location Rectum Intensity 10 Scale Used Numeric (0 - 10) Pain Management Techniques Distraction,Modification of Treatment,Re-positioning, Timing of Activity with Medications M4 PT-IP Mobility and Gait Start: 02/01/22 09:06 Freq: NEEDED Status: Active Protocol: Document 02/02/22 12:25 AB (Rec: 02/02/22 13:27 AB [id number]) PT-Bed Mobility Assessment Supine to Sit Supine to Sit Maximum Assistance,1 Person Assistance,2 Person Assistance Sit to Supine Sit to Supine Maximum Assistance,1 Person Assistance,2 Person Assistance Scooting Scooting to Edge of Bed Maximum Assistance Scooting Up and Down in Bed Dependent PT-Transfer Assessment Comments Mobility Comments completed supine to sit max A x 1-2 and max cues. max A for sitting balance on EOB and max A for scooting to EOB. (+ ) tremors and pt stated that this is chronic. pt unable to tolerate much activity and c/ o increase LBP, abdominal and rectal pain. pt requested to go back to bed. increase tremors noted. completed sit to supine max a x 1-2 and max cues. positioned pt in bed total A x 2. attempted to get BP in sitting but unable due to UE tremors. PT-Balance Assessment Sitting Balance and Reactions Static Sitting Balance Ability Poor Dynamic Sitting Balance Ability Poor M5 PT-IP Objective Assessments Start: 02/01/22 09:06 Freq: NEEDED Status: Active Protocol: Document 02/02/22 12:25 AB (Rec: 02/02/22 13:27 AB [id number]) Orientation Orientation/Cognition Level of Alertness Confusional State Orientation Name,Place,Situation Language Function Ability Hard of Hearing Safety Awareness Decreased Safety Awareness Memory Description Short Term Impaired Gross Range of Motion Lower Extremity ROM Assessment Within Functional Limits Strength Lower Extremity Strength Hip 3-/5 Knee 3+/5 Sensation Assessment Sensation Gross Sensation WNL Muscle Tone Muscle Tone WNL Yes Other Assessments Other Other Assessments (+) body tremors/UE: pt stated that this is chronic M6 PT-IP Treatment Start: 02/01/22 09:06 Freq: NEEDED Status: Active Protocol: Document 02/02/22 12:25 AB (Rec: 02/02/22 13:27 AB [email or web address]) Physical Therapy Treatment Education Education Provided Safety M7 PT-IP Assessment and Plan Start: 02/01/22 09:06 Freq: NEEDED Status: Active Protocol: Document 02/02/22 12:25 AB (Rec: 02/02/22 13:27 AB [id number]) PT Summary Assessment and Plan Potential Rehabilitation Potential Fair Status of Condition at Evaluation Evolving Summary Impairments Pain,ROM,Strength,Balance, Coordination,Sensation,Tone, Cognition,Bed Mobility, Transfers,Gait,Activity Tolerance Assessment Summary pt requiring max A x 2 to total A x 2 with bed mobility and sitting balance and unable to tolerate much activity with c/o increase LBP, abdominal and rectal pain. pt will require SNF rehab at this time. Per vocational case manager, pt might go on hospice care. will continue to assess progress. Goals Bed Mobility Goal Minimal Assistance Transfer Goal Minimal Assistance,Front Wheeled Walker Gait Goal Minimal Assistance,Front Wheel Walker Gait Distance 50 Other Goals improve bed mobility, transfers using FWW and ambulation using FWW 150 ft SBA Days to Meet Goals 10 Frequency of Treatment Frequency Of Treatment Once a Day Treatment Plan Physical Therapy Treatment Plan Bed Mobility Training,Transfer Training,Gait Training, Therapeutic Exercise,Balance Retraining,Discharge Planning, Hot or Cold Pack,Neuromuscular Re-ed,Coordination Retraining Precautions Other Precautions falls Recommendations To Nursing Amount of Assist Needed Mechanical Lift Discharge Recommendations PT Discharge Recommendations SNF Rehab Transportation Needs at Discharge Wheelchair/Cabulance
--- NOTE | 2022-02-02 12:52 | OT.IP.EVAL ---
Past Medical History (Last Reviewed 02/01/22 @ 06:12 by Brent Santiago MD) Anxiety Asthma HLD (hyperlipidemia) Osteoarthritis PTSD (post-traumatic stress disorder) Spinal fracture Surgical History (Last Reviewed 02/01/22 @ 06:12 by Brent Santiago MD) Hx of knee surgery Occupational Therapy Inpatient Evaluation/Re-Eval M1 PT/OT-IP Prior Functional Status Start: 02/01/22 09:06 Freq: NEEDED Status: Active Protocol: Document 02/02/22 12:25 AB (Rec: 02/02/22 13:27 AB [email or web address]) Medical Review Prior Functional Status Medical History Reviewed Yes Communication with confusion; able to answer questions but requires repetitons to respond Mobility and Gait pt stated that she is modified independent with all mobilities and ambulation using FWW Social History Household Members none Living Arrangements Apartment/Condo Number of Floors (Floors) One Floor Number of Stairs To Enter/Railing? no steps to enter Home Environment Walk in Shower,Tub/Shower Home Equipment Front Wheel Walker,Tub Transfer Bench,Hand Held Shower Additional Social History Comment caregivers comes in on the weekdays: Mon(2 pm to 530pm); ,Tue, Fri (10 am to 530pm) to assist pt with house chores, meals M2 OT-IP Current Condition Start: 02/02/22 12:58 Freq: Status: Active Protocol: Document 02/02/22 12:23 [facility] (Rec: 02/02/22 14:04 [facility] [id number]) Occupational Therapy Current Condition Current Condition Evaluation Date 02/02/22 Treatment Diagnosis L2 complression fx, possible mets, weakness Diagnosis Onset Date 01/31/22 M3 OT- IP Subjective and Pain Start: 02/02/22 12:58 Freq: Status: Active Protocol: Document 02/02/22 12:23 [facility] (Rec: 02/02/22 14:04 [facility] [id number]) OT- Subjective Occupational Therapy Visit Type Type Initial Evaluation Visit Start Time 12:23 Visit Stop Time 12:52 Total Visit Minutes 29 Occupational Therapy Visit Comments Patient Comments Pt initiallyy not wanting to get up and then check on her in PM and requesting to try. Able to notify PT so able to see her together. OT Pain Assessment Pain When Pain Assessed At Rest Pain Present Pain Present Pain Reported Location Rectum Intensity 8 Scale Used Numeric (0 - 10) M4 OT- IP ADL's Start: 02/02/22 12:58 Freq: Status: Active Protocol: Document 02/02/22 12:23 [facility] (Rec: 02/02/22 14:04 [facility] [id number]) OT PLF-[id number] Comments OT Self-Feeding Comments NOt at meal time. Pt able to drink from her water bottle. OT ADL-Grooming Comments OT Grooming Comments NOt performed. OT ADL-Oral Care Comments Oral Care Comments Not performed. OT ADL-Dressing General Eval Lower Body Dressing Ability Maximum Assistance OT ADL-Toileting Comments OT Toileting Comments not performed OT ADL-Bathing Comments OT Bathing Comments Sponge bath more appropriate at this time M5 OT- IP IADL's Start: 02/02/22 12:58 Freq: Status: Active Protocol: Document 02/02/22 12:23 [facility] (Rec: 02/02/22 14:04 [facility] [id number]) OT-Instrumental Activities of Daily Living Meal Preparation Meal Preparation Caregiver Provides Assist Tanner Rotary Drum Continuous Process Tanner Rotary Drum Continuous Process Caregiver Provides Assist Driving Driving Caregiver Provides Assist M6 OT- IP Functional Cognition Start: 02/02/22 12:58 Freq: Status: Active Protocol: Document 02/02/22 12:23 [facility] (Rec: 02/02/22 14:04 [facility] [id number]) Cognitive Factors Limiting Selfcare Function Cognitive Ability Level of Alertness Alert Patient Orientation Name,Place Attention Span Ability Capable of Focused Attention, Capable of Sustained Attention Ability to Follow Commands Able to Follow One Step Commands Cognitive Comments Cognitive Assessment Comments Pt able to follow commands for mobility needs. Pt is hard of hearing and does not have her hearing aids here, therefore needing repetitive instructions at times.Pt is lots of pain but will to try to participate. OT- Vision and Hearing OT- Hearing Assessment OT- Hearing Assessment Hearing Impaired,Use of Hearing Aids OT- Vision Assessment Visual Acuity Glasses All The Time Vision Assessment Comments Pt does not have her hearing aids here. M7 OT- IP Mobility and Balance Start: 02/02/22 12:58 Freq: Status: Active Protocol: Document 02/02/22 12:23 [facility] (Rec: 02/02/22 14:04 [facility] [id number]) OT- Bed Mobility Assessment Supine to Sit Supine to Sit Assist Maximum Assistance,2 Person Assistance,Head of Bed Elevated Sit to Supine Sit to Supine Assist Maximum Assistance,2 Person Assistance OT-Transfer Assessment Comments Mobility Comments Pt able to assist to help move her legs to the edge of the bed and then needing assist to get her legs off the bed and to help get her trunk upright . Pt only able to tolerate sitting on the edge of the bed with CGA to MODA and requesting to lie back down. Pt tends to tremors when seated on the edge of the bed, pt states is not new for her and prior tremors at times. OT- Balance Assessment Sitting Balance and Reactions Static Sitting Balance Ability Poor Dynamic Sitting Balance Ability Poor M8 OT- IP Objective Assessments Start: 02/02/22 12:58 Freq: Status: Active Protocol: Document 02/02/22 12:23 [facility] (Rec: 02/02/22 14:04 [facility] [id number]) OT Strength Comments Strength Comments Pt at least 3-/5 but did not formally assess due her back pain and compression fx. OT-Muscle Tone Assessment Muscle Tone WNL Yes M9 OT- IP Assessment and Plan Start: 02/02/22 12:58 Freq: Status: Active Protocol: Document 02/02/22 12:23 [facility] (Rec: 02/02/22 14:04 [facility] [id number]) OT Summary Assessment and Plan Potential Rehabilitation Potential Fair Analytic Complexity at Evaluation Moderate Summary OT Impairments Pain,Strength,Balance, Functional Mobility,Self- Feeding,Grooming,Dressing, Toileting,Bathing,Toilet Transfers,Shower Transfers, Activity Tolerance Progress Towards Goals Slow Progress due to Pain,Slow Progress due to Medical Issues,Slow Progress due to Activity Tolerance Assessment Summary Pt MOD complexity and main barriers are pain, and only able to tolerate sitting up at the edge of the bed with MAX AX 2 to get from sit<>supine. Pt would benefit from skilled rehab however counseling case manager states pt may possibly go on hospice. Goals Grooming Goal Independent Dressing Goal Independent Toileting Goal Independent Bathing Goal Moderate Assistance Toilet Transfer Goal Independent,Contact Guard Assistance Shower Transfer Goal Minimal Assistance Days to Meet Goals 40 Frequency of Treatment Frequency Of Treatment Once a Day Treatment Plan OT Treatment Plan ADL Training,Functional Cognition Training,Functional Mobility,Patient/Family Education,Discharge Planning Other Treatment Recommendations and Next [place] [facility] [place] 2 Treatment Focus Discharge Recommendations OT Discharge Recommendations SNF Rehab Transportation Needs at Discharge Stretcher/Ambulance
[2022-02-02 13:50] LABS: Adenovirus F 40/41 Not Detected (Not Detect); Astrovirus Not Detected (Not Detect); Campylobacter Not Detected (Not Detect); Clostridium difficile toxin AB Not Detected (Not Detect); Cryptosporidium Not Detected (Not Detect); Cyclospora cayetanensis Not Detected (Not Detect); Entamoeba histolytica Not Detected (Not Detect); Enteroaggregative E.coli Not Detected (Not Detect); Enteropathogenic E.coli Not Detected (Not Detect); Enterotoxigenic E.coli It/st Not Detected (Not Detect); Giardia lamblia Not Detected (Not Detect); Norovirus GI/GII Not Detected (Not Detect); Plesiomonsa shigelloides Not Detected (Not Detect); Rotavirus A Not Detected (Not Detect); Salmonella Not Detected (Not Detect); Sapovirus Not Detected (Not Detect); Shiga-like toxin-prod E.coli Not Detected (Not Detect); Shigella/Enteroinvasive E.coli Not Detected (Not Detect); Vibrio Not Detected (Not Detect); Vibrio cholerae Not Detected (Not Detect); Yersinia enterocolitica Not Detected (Not Detect)
--- NOTE | 2022-02-02 15:31 | DIET.CONS2 ---
Dietary Inpatient Consultation Note Admission Date: 02/02/2022 12:35 Pt with expressed poor appetite and POs this hospitalization 0-50%. Initiating ONS Ensure Enlive tid to support nutrition status as pt states she is drinking fine, just not eating well. Diet: 01/31/22 Breakfast Heart Healthy Diet Diet Modifications: Nutrition Percent Meal Consumed 0% 02/02/22 08:00 Percent Meal Consumed 50% 02/01/22 18:00 Percent Meal Consumed 25% 02/01/22 13:50 Electronically Signed by: Kaitlin Johnson 02/02/22 15:31 Clinical Dietitian [address] [id number]
[2022-02-02] MEDS: LOPERAMIDE 2 MG CAPSULE 4 MG PO (16:01)
--- NOTE | 2022-02-02 16:13 | CM.DPC ---
DCP/continued: Received verbal referral from provider re: d/c planning? At this time work up in process. It is suspected that patient has CA with mets. Met briefly with patient this afternoon but unable to discuss d/c planning because patient in too much pain. Patient unable to work with both PT and OT today due to pain and discomfort. Patient may be most appropriate for hospice? No actual diagnosis has been determined so unclear on when best time to have goals of care conversation would be? Suggest that provider first discusses diagnosis and potential treatment and/or no treament. Placed call to [facility] spoke with Rosario. She reports that they will consider for rehabilitation but want to know what is the equipment operator intermodal yard plan prior to accepting. Patient changed to inpatient status today. P: CM team to follow with provider to get clear expectation on next steps. Patient appears to be appropriate for hospice but remains full code without diagnosis. JANET
[2022-02-02] MEDS: QUETIAPINE 25 MG TABLET 12.5 MG PO ×2 (19:46→21:38)
[2022-02-03] VITALS (7 sets, daily range): BP systolic 125–159; BP diastolic 63–82; PULSE 78–90; RESP 18; TEMP 35.7–36.8; O2SAT 95–99
[2022-02-03] MEDS: ACETAMINOPHEN 325 MG TABLET 650 MG PO (04:47)
[2022-02-03] MEDS: LOPERAMIDE 2 MG CAPSULE PO ×3 (04:47→15:18)
--- NOTE | 2022-02-03 05:06 | PC.NURSE ---
Pt left arm cool to touch. tried to flush IV with saline which was painful to touch. IV discontinued, will let Dr. Santiago know in the am since the plan yesterday was to place a mid line. Pt has had 2 loose stools tonight. Jurgen area excoriated and patients screamed with jurgen care which made it difficult to change patient. pt received 1 imodium and tyleno to help alleviate pain.
[2022-02-03] MEDS: ENOXAPARIN 40 MG/0.4 ML SYRINGE SUBCUT (08:32)
[2022-02-03 08:42] LABS: Hematocrit 35.5 % (36-46); Mean Corpuscular HGB Conc 33.7 % (30-36); Mean Corpuscular Hemoglobin 30.2 PG (26-34); Mean Corpuscular Volume 89.7 fL (80-100); Platelet Count 287 X10^3/uL (150-400); Red Blood Cell Count 3.96 X10^6/uL (4.0-5.2); Red Cell Distribution Width 14.1 % (11.6-14.8); White Blood Cell Count 10.7 X10^3/uL (4.5-11.0)
[2022-02-03 08:44] LABS: Add Manual Diff / Slide Review YES
[2022-02-03 08:52] LABS: Alanine Aminotransferase 47 IU/L (<35); Albumin 2.7 g/dL (3.5-5.0); Alkaline Phosphatase 65 U/L (38-126); Aspartate Aminotransferase 43 IU/L (14-36); BUN Creatinine Ratio 40.5 (6-22); Bilirubin Total 0.5 mg/dL (0.2-1.3); Blood Urea Nitrogen 17 mg/dL (7-17); C-Reactive Protein Quant 8.5 mg/dL (<1.0); Carbon Dioxide 26 mmol/L (22-32); Chloride 107 mmol/L (98-107); Estimated Glomerular Filt Rate > 60 mL/min (>60); Globulin 2.8 g/dL (1.7-4.1); Glucose 125 mg/dL (80-110); HEMOLYSIS 24 (0-50); Potassium 3.9 mmol/L (3.4-5.1); Sodium 135 mmol/L (137-145); Total Protein 5.5 g/dL (6.3-8.2)
[2022-02-03 08:59] LABS: Neutrophils Absolute Manual 7918 /uL (3000-5900); RBC Morphology Normal Morphology; Total Cells Counted 100
[2022-02-03] MEDS: HYDROMORPHONE 2 MG TABLET 1 MG PO (10:41)
[2022-02-03] MEDS: MEROPENEM 1 GM in SODIUM CHLORIDE 0.9% 100 ML IV ×3 (10:48→22:24)
--- NOTE | 2022-02-03 11:03 | CM.DPNOTE ---
DCP Note Met w/patient this morning; patient awaiting visit from PT. Explained efforts are underway to secure SNF upon DC and suggested goals of care and treatment need to be better defined. Patient asks this WELDING SUPERVISOR yes, what are they? Referred to attending provider Dr Mendez to discuss goals of care with patient Following closely for coordination of the safest DCP available to patient JW
--- NOTE | 2022-02-03 11:25 | PT.IPTN ---
Current Diagnoses Diarrhea, unspecified (02/02/22) Physical Therapy Treatment Note M2 PT-IP Current Condition Start: 02/01/22 09:06 Freq: NEEDED Status: Active Protocol: Document 02/02/22 12:25 AB (Rec: 02/02/22 13:27 AB [id number]) Physical Therapy Current Condition Current Condition Evaluation Date 02/02/22 Treatment Diagnosis possible CA w/ mets; metab. encephalopathy; L2 comp. fx; diff. in walking Onset Date 01/31/22 M3 PT-IP Subjective Start: 02/01/22 09:06 Freq: NEEDED Status: Active Protocol: Document 02/03/22 11:09 [place] (Rec: 02/03/22 13:47 [place] [id number]) Subjective Physical Therapy Visit Type Type Treatment Note Visit Start Time 11:09 Visit Stop Time 11:25 Total Visit Minutes 16 Notes co-treat w/ OT Number of MULESER Visits 1 Therapy Pain Assessment Pain When Pain Assessed At Rest Pain Present Pain Present Pain Reported M4 PT-IP Mobility and Gait Start: 02/01/22 09:06 Freq: NEEDED Status: Active Protocol: Document 02/03/22 11:09 [place] (Rec: 02/03/22 13:47 [place] [id number]) PT-Bed Mobility Assessment Rolling Type of Rolling Log Rolling,Roll to Right Level of Assist Maximal Assistance,2 Person Assistance Supine to Sit Supine to Sit Maximum Assistance,Total Assistance,2 Person Assistance Sit to Supine Sit to Supine Maximum Assistance,Total Assistance,2 Person Assistance Scooting Scooting to Edge of Bed Maximum Assistance Scooting Up and Down in Bed Dependent PT-Transfer Assessment Comments Mobility Comments Pt in bed upon arrival and agreeable to working w/ PT and OT. Pt c/o back pain. Max A x2 and max cues for logroll to R side and Max A x2 for sidelying<>sit w/ Max A for scooting EOB. Pt required Mod to Max A to maintain seated balance and is very fearful of falling, needing frequent reassurance. Pt refused attempting sit<>stand due to pain. Was able to sit EOB w/ Mod/Max A for ~4 min. Cues for deep breathing due to anxiousness and tremors. Pt required Max A x2 for sit<>sup and repositioning in bed. Pt w/ diarrhea needing to be cleaned, RN notified and pt left w/ OT. Gait Assessment Comments Gait Comments Unable at this time. PT-Balance Assessment Sitting Balance and Reactions Static Sitting Balance Ability Poor Dynamic Sitting Balance Ability Poor M5 PT-IP Objective Assessments Start: 02/01/22 09:06 Freq: NEEDED Status: Active Protocol: Document 02/02/22 12:25 AB (Rec: 02/02/22 13:27 AB [email or web address]) Orientation Orientation/Cognition Level of Alertness Confusional State Orientation Name,Place,Situation Language Function Ability Hard of Hearing Safety Awareness Decreased Safety Awareness Memory Description Short Term Impaired Gross Range of Motion Lower Extremity ROM Assessment Within Functional Limits Strength Lower Extremity Strength Hip 3-/5 Knee 3+/5 Sensation Assessment Sensation Gross Sensation WNL Muscle Tone Muscle Tone WNL Yes Other Assessments Other Other Assessments (+) body tremors/UE: pt stated that this is chronic M6 PT-IP Treatment Start: 02/01/22 09:06 Freq: NEEDED Status: Active Protocol: Document 02/03/22 11:09 KS (Rec: 02/03/22 13:47 KS [id number]) Physical Therapy Treatment Education Education Provided Safety M7 PT-IP Assessment and Plan Start: 02/01/22 09:06 Freq: NEEDED Status: Active Protocol: Document 02/03/22 11:09 KS (Rec: 02/03/22 13:47 KS [id number]) PT Summary Assessment and Plan Potential Rehabilitation Potential Fair Status of Condition at Evaluation Evolving Summary Impairments Pain,ROM,Strength,Balance, Coordination,Sensation,Tone, Cognition,Bed Mobility, Transfers,Gait,Activity Tolerance Assessment Summary Pt continues to require Max to Total A x2 for bed mobility. Very weak and high level of pain and c/o increased pain w/ mobility. Able to perform logroll and sit EOB ~ 4 min w/ Mod/Max A for seated balance. Pt will require SNF to improve strength and functional mobility. Will continue to assess progress as tolerated and appropriate. Goals Bed Mobility Goal Minimal Assistance Transfer Goal Minimal Assistance,Front Wheeled Walker Gait Goal Minimal Assistance,Front Wheel Walker Gait Distance 50 Other Goals improve bed mobility, transfers using FWW and ambulation using FWW 150 ft SBA Days to Meet Goals 10 Frequency of Treatment Frequency Of Treatment Once a Day Treatment Plan Physical Therapy Treatment Plan Bed Mobility Training,Transfer Training,Gait Training, Therapeutic Exercise,Balance Retraining,Discharge Planning, Hot or Cold Pack,Neuromuscular Re-ed,Coordination Retraining Precautions Other Precautions falls Recommendations To Nursing Amount of Assist Needed Mechanical Lift Discharge Recommendations PT Discharge Recommendations SNF Rehab Transportation Needs at Discharge Wheelchair/Cabulance,Stretcher /Ambulance
--- NOTE | 2022-02-03 11:29 | OT.IP.TRT ---
Current Diagnoses Diarrhea, unspecified (02/02/22) Occupational Therapy Treatment Note M2 OT-IP Current Condition Start: 02/02/22 12:58 Freq: Status: Active Protocol: Document 02/02/22 12:23 [facility] (Rec: 02/02/22 14:04 [facility] [id number]) Occupational Therapy Current Condition Current Condition Evaluation Date 02/02/22 Treatment Diagnosis L2 compression fx, possible mets, weakness Diagnosis Onset Date 01/31/22 M3 OT- IP Subjective and Pain Start: 02/02/22 12:58 Freq: Status: Active Protocol: Document 02/03/22 11:32 [facility] (Rec: 02/03/22 11:48 [facility] [id number]) OT- Subjective Occupational Therapy Visit Type Type Treatment Note Visit Start Time 11:07 Visit Stop Time 11:29 Total Visit Minutes 22 Occupational Therapy Visit Comments Patient Comments Pt agreed to get up but very fearful of falling. Pt was soiled at the end of the session and notified nursing to be cleaned. OT Pain Assessment Pain When Pain Assessed At Rest Pain Present Pain Present Pain Reported M4 OT- IP ADL's Start: 02/02/22 12:58 Freq: Status: Active Protocol: Document 02/03/22 11:32 [facility] (Rec: 02/03/22 11:48 [facility] [id number]) OT [id number] Comments OT Self-Feeding Comments NOt at meal time. OT ADL-Grooming Comments OT Grooming Comments Pt able to wash her face after set-up of wash cloth. OT ADL-Oral Care Comments Oral Care Comments Not performed. OT ADL-Dressing General Eval Lower Body Dressing Ability Maximum Assistance,Total Assistance OT ADL-Toileting General Evaluation Toileting Ability Total Assistance Areas Needing Assistance Manage Clothing,Perform Perineal Hygiene Comments OT Toileting Comments 2 person extensive assist while in bed for brief/hygiene needs OT ADL-Bathing Comments OT Bathing Comments Sponge bath more appropriate at this time M5 OT- IP IADL's Start: 02/02/22 12:58 Freq: Status: Active Protocol: Document 02/02/22 12:23 [facility] (Rec: 02/02/22 14:04 [facility] [id number]) OT-Instrumental Activities of Daily Living Meal Preparation Meal Preparation Caregiver Provides Assist Appraisal Coordinator Appraisal Coordinator Caregiver Provides Assist Driving Driving Caregiver Provides Assist M6 OT- IP Functional Cognition Start: 02/02/22 12:58 Freq: Status: Active Protocol: Document 02/03/22 11:32 [facility] (Rec: 02/03/22 11:48 [facility] [id number]) Cognitive Factors Limiting Selfcare Function Cognitive Comments Cognitive Assessment Comments Pt a bit anxious and expressing fear of falling when assisting pt up from the bed. Pt not able to say what she would like to do or where she will be going after being in the hospital. Pt not wanting to do anymore than sitting up at the edge of the bed due to pain and and not feeling well. When asked if pt still wants to continue to therapy daily, she said will continue to try . OT- Vision and Hearing OT- Vision Assessment Vision Assessment Comments Hearing aids present M7 OT- IP Mobility and Balance Start: 02/02/22 12:58 Freq: Status: Active Protocol: Document 02/03/22 11:32 [facility] (Rec: 02/03/22 11:48 [facility] [id number]) OT- Bed Mobility Assessment Supine to Sit Supine to Sit Assist Maximum Assistance,Total Assistance,2 Person Assistance Sit to Supine Sit to Supine Assist Total Assistance,2 Person Assistance Scooting Scooting to Edge of Bed Maximum Assistance,2 Person Assistance OT-Transfer Assessment Comments Mobility Comments Able to try log rolling today and pt able to assist minimally and needing MAX/total assist x2 to get out of the bed and total assist x2 to get back into bed. Pt needing from MODA to MAX A to sit upright. OT- Balance Assessment Sitting Balance and Reactions Static Sitting Balance Ability Poor Dynamic Sitting Balance Ability Poor M8 OT- IP Objective Assessments Start: 02/02/22 12:58 Freq: Status: Active Protocol: Document 02/02/22 12:23 [facility] (Rec: 02/02/22 14:04 [facility] [id number]) OT Strength Comments Strength Comments Pt at least 3-/5 but did not formally assess due her back pain and compression fx. OT-Muscle Tone Assessment Muscle Tone WNL Yes M9 OT- IP Assessment and Plan Start: 02/02/22 12:58 Freq: Status: Active Protocol: Document 02/03/22 11:32 [facility] (Rec: 02/03/22 11:48 [facility] [id number]) OT Summary Assessment and Plan Potential Rehabilitation Potential Fair Analytic Complexity at Evaluation Moderate Summary OT Impairments Pain,Strength,Balance, Functional Mobility,Self- Feeding,Grooming,Dressing, Toileting,Bathing,Toilet Transfers,Shower Transfers, Activity Tolerance Progress Towards Goals Slow Progress due to Pain,Slow Progress due to Medical Issues,Slow Progress due to Activity Tolerance Assessment Summary Pt just able to tolerate bed mobility today and needing MAX /total A x2 to Total Ax2 for mobility needs and MOD to MAX A for sitting balance. When asked, pt still wanting to try to do therapy daily even though only has been able to try sitting at the edge of the bed and not wanting to try to stand at this time. Suggest SNF , LTC, versus possible hospice as mentioned by family service caseworker yesterday. Goals Grooming Goal Independent Dressing Goal Independent Toileting Goal Independent Bathing Goal Moderate Assistance Toilet Transfer Goal Independent,Contact Guard Assistance Shower Transfer Goal Minimal Assistance Days to Meet Goals 40 Frequency of Treatment Frequency Of Treatment Once a Day Treatment Plan OT Treatment Plan ADL Training,Functional Cognition Training,Functional Mobility,Patient/Family Education,Discharge Planning Other Treatment Recommendations and Next Sit at edge of the bed with Treatment Focus BHARTI x1 and able to do grooming needs after set-up Discharge Recommendations OT Discharge Recommendations SNF Rehab,LTAC Transportation Needs at Discharge Stretcher/Ambulance
--- NOTE | 2022-02-03 11:37 | P.PN_ITS ---
Subjective Subjective Date Patient Seen: 02/03/22 Interval history: Hospitalist follow up visit. Patient not having fever chills nausea or vomiting. Continues to have diarrhea but with benefit of loperamide treatment. Back pain is persistent however is being treated adequately with current medication. No dysuria or hematuria. Having some blood with stools consistent with hemorrhoids per nursing. Exam Vital Signs (past 8 hours): - 02/03/22 05:01 02/03/22 08:01 02/03/22 11:07 Temperature 97.9 F 98.3 F Pulse Rate 78 79 Respiratory Rate 18 18 Blood Pressure 153/74 H 159/82 H Pulse Oximetry 95 98 96 Oxygen Delivery Method Nasal Cannula Oxygen Flow Rate 2 2 2 Oxygen Delivery Method Nasal Cannula Oxygen Flow Rate 2 Narrative Exam Narrative: GEN: no acute distress HEENT: wet mucous membranes, PERRL NECK: trachea midline, no jVD CV: regular rate and rhythm, no murmurs PULM:? Adequate air entry throughout.? No wheezes or crackles. ABD: soft, generalized tenderness, no rebound guarding.? Increased bowel sounds. Rectal:? Not done.? Patient's preference. EXT: warm and well perfused with no edema NEURO:? Alert and oriented. Very interactive today. Appears to have normal sensation of all extremities. Objective Labs Result Diagrams: 02/03/22 08:20 02/03/22 08:20 Labs: Laboratory Results - last 24 hr 02/02/22 02/03/22 02/03/22 12:04 08:20 08:20 WBC 10.7 RBC 3.96 L Hgb 12.0 Hct 35.5 L MCV 89.7 MCH 30.2 MCHC 33.7 RDW 14.1 Plt Count 287 Neut % (Auto) Not Reportable Lymph % (Auto) Not Reportable [place] % (Auto) Not Reportable Eos % (Auto) Not Reportable Baso % (Auto) Not Reportable Lymph # (Auto) Not Reportable [place] # (Auto) Not Reportable Baso # (Auto) Not Reportable Total Counted 100 Seg Neutrophils % 66.0 Band Neutrophils % 8.0 H Lymphocytes % (Manual) 16.0 L Atypical Lymphs % 1.0 H Monocytes % (Manual) 8.0 Eosinophils % (Manual) 1.0 L Neutrophils # (Manual) 7918 H RBC Morphology Normal morphology Sodium 135 L Potassium 3.9 Chloride 107 Carbon Dioxide 26 BUN 17 Creatinine 0.42 L Estimated GFR > 60 BUN/Creatinine Ratio 40.5 H Glucose 125 H Calcium 8.0 L Total Bilirubin 0.5 AST 43 H ALT 47 H Alkaline Phosphatase 65 C-Reactive Protein 8.5 H Total Protein 5.5 L Albumin 2.7 L Globulin 2.8 Albumin/Globulin Ratio 1.0 Stl C. cayetanensis PCR Not detected Stool Rotavirus (PCR) Not detected Stool Adenovirus (PCR) Not detected Stool Astrovirus (PCR) Not detected Stool Cryptosporidium PCR Not detected Stl E.coli Shiga Tox PCR Not detected St Sh/Enteroin Ecoli PCR Not detected Stool E coli O157 PCR Not Reportable Stl Enterotoxigenic E PCR Not detected Stool EPEC (PCR) Not detected Stl E. histolytica PCR Not detected Stool Giardia Lamblia PCR Not detected Stool Sapovirus (PCR) Not detected Stl P. shigelloides PCR Not detected St Y.enterocolitica PCR Not detected Stool Vibrio (PCR) Not detected Stl Vibrio cholerae PCR Not detected Stl Enteroaggr Ecoli PCR Not detected Stl Norovirus GI/GII PCR Not detected Campylobacter (PCR) Not detected C. difficile Tox (PCR) Not detected Salmonella (PCR) Not detected PFSH Medical History Anxiety Asthma HLD (hyperlipidemia) Osteoarthritis PTSD (post-traumatic stress disorder) Spinal fracture Surgical History Hx of knee surgery Social History household members: none Smoking Status: Former smoker alcohol intake: never Assessment & Plan Assessment & Plan narrative: 1. Concern for metastatic cancer MRCP pending. We will discuss with Radiology when this potentially is being scheduled for. Also has increased mucus plugging in the right lower lobe of lung with a new pulmonary nodule with adjacent lymph node.? Possibly this would also be a source for biopsy and will discuss with Interventional Radiology. 2. Fever, Leukocytosis. Currently on meropenem.? Temperature stable today.? White blood count now normal.? Continue to follow. 3. Acute encephalopathy, metabolic MRI head shows no metastatic lesions.? Patient with normal mentation today. Several of her medications that the patient was on have not been continued and these include divalproex, hydrocodone, mirtazapine, gabapentin, temazepam. ? Holding these could have benefit the patient.? Patient has been initiated on Dilaudid as needed for pain control yesterday. However need to clarify the need reason for divalproex and reinitiate if the patient needs to be on this medication. 4. Possible left 1st phalanx foot fracture.?Questionable fracture of the volar base of the proximal 1st phalanx. Continue symptomatic treatment with pain medications 5. Compression fractures-reason for back pain Continue symptomatic treatment with pain medications and added medication of Dilaudid yesterday as needed. 6. Tremors Chronic with no treatment.? Patient indicates the only thing that he can settle the tremors are tranquilizers. 7. Hypertension.?? Improved with decreasing IV infusion rate however infusion to continue due to persistent diarrhea. Will treat hypertension with lisinopril. Patient has inadequate improvement and requires active, continues management. Time Spent With Patient Critical Care time: I spent a total of [] minutes of critical care time on this patient's care today; this time is exclusive of procedural time. Quality VTE Deep Vein Thrombosis/Pulmonary Embolism Present on Admission: No
[2022-02-03] MEDS: lisinopriL 5 MG TABLET PO (12:01)
--- NOTE | 2022-02-03 12:26 | PC.RNWOUND ---
Patient resting in bed, turns to side with max assist to get cleaned up. Patient is incontinent of liquid brown stool and attends are soiled. No open areas noted to sacrogluteal skin. There is a 1 x 3cm area of nonblanchable redness to the left gluteus, skin intact. There is also some light red discoloration noted to gluteal cleft and groin skin folds consistent with the appearance of IAD, but this has been improving, per primary nurse, from what it was before with calazime barrier cream and keeping patient clean and dry. Patient tolerates cares well and without complaint, heels floated on pillows.
[2022-02-03] MEDS: SODIUM CHLORIDE 0.9% 1,000 ML 50 ML IV (13:38)
[2022-02-03] MEDS: dilTIAZem CD 180 MG CAP PO (15:18)
--- NOTE | 2022-02-03 16:01 | DIET.CONS2 ---
Dietary Inpatient Consultation Note Admission Date: 02/02/2022 12:35 76y F admitted for fatigue referred to nutrition for high risk status (MNA 9). Pt being worked up to find source of fatigue and N/V/D. Pt with particularly bad diarrhea yesterday per nurse Finnegan, who was in pts room [id number]. Pt with poor POs since admission, 0-50%. Pt c difficulty talking c RD as she had quiet voice and grimace on face. Reviewing food options, pt only felt shaji peng would be acceptable. Pt states too weak for discussion. Kitchen to send ONS Jose mixed c shaji peng c dinner. Sending naan pizza as pt told nurse Finnegan this sounded good yesterday. Pts weights on file unreliable. RD to visit c pt tomorrow to see if more talkative. Diet: 01/31/22 Breakfast Heart Healthy Diet Diet Modifications: Enlive tid Nutrition Percent Meal Consumed 0% 02/02/22 08:00 Percent Meal Consumed 50% 02/01/22 18:00 Electronically Signed by: Kaitlin Johnson 02/03/22 16:01 Clinical Dietitian [address] [id number]
[2022-02-03] MEDS: QUETIAPINE 25 MG TABLET 12.5 MG PO (22:22)
[2022-02-03] MEDS: ATORVASTATIN 20 MG TABLET 40 MG PO (22:23)
[2022-02-04] VITALS (8 sets, daily range): BP systolic 111–161; BP diastolic 50–73; PULSE 70–88; RESP 18–21; TEMP 36–36.9; O2SAT 96–99
[2022-02-04 07:46] LABS: Add Manual Diff / Slide Review NO; Basophils Absolute Auto 0 /uL (0-100); Basophils Percent Auto 0.2 % (0-2); Eosinophils Absolute Auto 100 /uL (0-450); Eosinophils Percent Auto 1.2 % (2-4); Hematocrit 34.4 % (36-46); Hemoglobin 11.6 g/dL (12.0-16.0); Lymphocytes Absolute Auto 1300 /uL (1100-4500); Lymphocytes Percent Auto 15.7 % (25-40); Mean Corpuscular HGB Conc 33.9 % (30-36); Mean Corpuscular Hemoglobin 30.3 PG (26-34); Mean Corpuscular Volume 89.6 fL (80-100); Monocytes Absolute Auto 1600 /uL (0-900); Monocytes Percent Auto 19.9 % (3-14); Neutrophils Absolute Auto 5100 /uL (1500-7000); Platelet Count 299 X10^3/uL (150-400); Red Blood Cell Count 3.84 X10^6/uL (4.0-5.2); Red Cell Distribution Width 14.2 % (11.6-14.8); White Blood Cell Count 8.1 X10^3/uL (4.5-11.0)
[2022-02-04] MEDS: MEROPENEM 1 GM in SODIUM CHLORIDE 0.9% 100 ML IV ×3 (07:52→23:57)
[2022-02-04] MEDS: SODIUM CHLORIDE 0.9% 1,000 ML 50 ML IV (07:53)
[2022-02-04 07:59] LABS: Alanine Aminotransferase 38 IU/L (<35); Albumin 2.7 g/dL (3.5-5.0); Alkaline Phosphatase 71 U/L (38-126); Aspartate Aminotransferase 30 IU/L (14-36); Bilirubin Total 0.5 mg/dL (0.2-1.3); Blood Urea Nitrogen 18 mg/dL (7-17); Calcium 8.3 mg/dL (8.4-10.2); Carbon Dioxide 27 mmol/L (22-32); Chloride 105 mmol/L (98-107); Estimated Glomerular Filt Rate > 60 mL/min (>60); Globulin 2.7 g/dL (1.7-4.1); Glucose 115 mg/dL (80-110); Potassium 4.2 mmol/L (3.4-5.1); Sodium 134 mmol/L (137-145); Total Protein 5.4 g/dL (6.3-8.2)
[2022-02-04 08:10] LABS: HEMOLYSIS 25 (0-50)
[2022-02-04 08:12] LABS: C-Reactive Protein Quant 11.6 mg/dL (<1.0)
--- NOTE | 2022-02-04 08:12 | PM.PN.1 ---
Subjective Subjective Date Patient Seen: 02/04/22 Interval history: Hospital follow-up visit. Some increased work of breathing. Requiring O2 supplementation, was not earlier today. Pain is still a problem in the back. This pain is chronic for the patient. Diarrhea is still persistent per the patient. Not complain of any fever chills nausea vomiting. No abdominal pain. Able to move all extremities volitionally. I discussed the possibility of doing an upper endoscopy and assessing the ampulla lesion with Dr. Massey. He indicated that he could not do an ERCP type procedure at [facility]. He recommended the patient have the assessment done as an outpatient. This was discussed with the patient. Will further discuss it with her surrogate decision maker as well. Patient is aware that she has the lesion in the ampulla as well as the lung nodule and the need to be assessed. Exam Vital Signs (past 8 hours): - 02/04/22 06:00 Temperature 97.8 F Pulse Rate 72 Respiratory Rate 18 Blood Pressure 140/64 Pulse Oximetry 99 Oxygen Flow Rate 0 Oxygen Delivery Method Nasal Cannula Oxygen Flow Rate 0 Narrative Exam Narrative: Patient alert oriented to person and place. Increased work of breathing with O2 supplementation. HEENT: Pupils equal reactive light extraocular movements normal. Neck is supple. Neck nodes are nontender and nonpalpable. Trachea is midline. Cardiovascular: Heart sounds S1 and S2. No extra sounds or murmurs. No pedal edema. Peripheral pulses equal bilaterally. Respiratory: General decreased air entry throughout the lung doe with increased resistance noted. Patient requiring O2 supplementation. Gastrointestinal: Abdomen is soft. Bowel sounds active. Abdomen nontender. Musculoskeletal: Able to move all extremities volitionally. No specific localized strength deficits. Neuro: Normal sensation of all extremities. No localizing signs. Skin: No lesions or rashes. Objective Labs Result Diagrams: 02/04/22 07:19 02/04/22 07:19 Labs: Laboratory Results - last 24 hr 02/03/22 02/03/22 02/04/22 08:20 08:20 07:19 WBC 10.7 8.1 RBC 3.96 L 3.84 L Hgb 12.0 11.6 L Hct 35.5 L 34.4 L MCV 89.7 89.6 MCH 30.2 30.3 MCHC 33.7 33.9 RDW 14.1 14.2 Plt Count 287 299 Neut % (Auto) Not Reportable 63.0 Lymph % (Auto) Not Reportable 15.[address] [place] % (Auto) Not Reportable 19.9 H Eos % (Auto) Not Reportable 1.2 L Baso % (Auto) Not Reportable 0.2 Neut # (Auto) 5100 Lymph # (Auto) Not Reportable [address] [place] # (Auto) Not Reportable 1600 H Eos # (Auto) 100 Baso # (Auto) Not Reportable 0 Total Counted 100 Seg Neutrophils % 66.0 Band Neutrophils % 8.0 H Lymphocytes % (Manual) 16.0 L Atypical Lymphs % 1.0 H Monocytes % (Manual) 8.0 Eosinophils % (Manual) 1.0 L Neutrophils # (Manual) 7918 H RBC Morphology Normal morphology Sodium 135 L Potassium 3.9 Chloride 107 Carbon Dioxide 26 BUN 17 Creatinine 0.42 L Estimated GFR > 60 BUN/Creatinine Ratio 40.5 H Glucose 125 H Calcium 8.0 L Total Bilirubin 0.5 AST 43 H ALT 47 H Alkaline Phosphatase 65 C-Reactive Protein 8.5 H Total Protein 5.5 L Albumin 2.7 L Globulin 2.8 Albumin/Globulin Ratio 1.0 02/04/22 07:19 WBC RBC Hgb Hct MCV MCH MCHC RDW Plt Count Neut % (Auto) Lymph % (Auto) [place] % (Auto) Eos % (Auto) Baso % (Auto) Neut # (Auto) Lymph # (Auto) [place] # (Auto) Eos # (Auto) Baso # (Auto) Total Counted Seg Neutrophils % Band Neutrophils % Lymphocytes % (Manual) Atypical Lymphs % Monocytes % (Manual) Eosinophils % (Manual) Neutrophils # (Manual) RBC Morphology Sodium 134 L Potassium 4.2 Chloride 105 Carbon Dioxide 27 BUN 18 H Creatinine 0.40 L Estimated GFR > 60 BUN/Creatinine Ratio 45.0 H Glucose 115 H Calcium 8.3 L Total Bilirubin 0.5 AST 30 ALT 38 H Alkaline Phosphatase 71 C-Reactive Protein Total Protein 5.4 L Albumin 2.7 L Globulin 2.7 Albumin/Globulin Ratio 1.0 PFSH Medical History Anxiety Asthma HLD (hyperlipidemia) Osteoarthritis PTSD (post-traumatic stress disorder) Spinal fracture Surgical History Hx of knee surgery Social History household members: none Smoking Status: Former smoker alcohol intake: never Assessment & Plan Assessment & Plan narrative: 1. Concern for metastatic cancer MRCP with noted lesion at the ampulla.? Also has increased mucus plugging in the right lower lobe of lung with a new pulmonary nodule with adjacent lymph node. Concern for metastatic disease. Discussed doing it endoscopy with ampulla biopsy at this hospital with Dr. Massey. Unable to do an ERCP at this hospital. Dr. Massey recommended procedure to be done as an outpatient. 2. Fever, Leukocytosis. Currently on meropenem.? Temperature stable today.? White blood count now normal.? Continue to follow. Patient on meropenem. Will complete a 5 day course. Can stop at the end of February 05, 2022. 3. Acute encephalopathy, metabolic MRI head shows no metastatic lesions.? Patient with normal mentation today.? Several of her medications that the patient was on have not been continued and these include divalproex, hydrocodone, mirtazapine, gabapentin, temazepam. ? Holding these could have benefit the patient.? Patient has been initiated on Dilaudid as needed for pain control.? Patient likely at baseline now. 4. Possible left 1st phalanx foot fracture.?Questionable fracture of the volar base of the proximal 1st phalanx. Continue symptomatic treatment with pain medications 5. Compression fractures-reason for back pain Continue symptomatic treatment with pain medications, Dilaudid as needed. 6. Tremors Chronic with no treatment.? Patient indicates the only thing that he can settle the tremors are tranquilizers. 7. Hypertension.??Currently on lisinopril and diltiazem. Reasonably stable. 8. Respiratory exam consistent with COPD exacerbation. We will re-initiate patient's albuterol and also treat with prednisone to stabilize. Continue to follow clinically. Goal is to finish meropenem 5 day course, treat the COPD exacerbation, discussed patient's course with her substitute decision maker implant for an outpatient ERCP. Patient has inadequate improvement and requires active, continues management. Time Spent With Patient Critical Care time: I spent a total of [] minutes of critical care time on this patient's care today; this time is exclusive of procedural time. Quality VTE Deep Vein Thrombosis/Pulmonary Embolism Present on Admission: No
--- NOTE | 2022-02-04 09:24 | OT.IPNOTE ---
Attempted to set-up at time for pt for therapy. Pt states did not sleep well or feel well and wanting to refuse therapy for today. To check on the pt tomorrow.
[2022-02-04] MEDS: ENOXAPARIN 40 MG/0.4 ML SYRINGE SUBCUT (10:32)
[2022-02-04] MEDS: predniSONE 20 MG TABLET 40 MG PO (10:32)
[2022-02-04] MEDS: QUETIAPINE 25 MG TABLET 12.5 MG PO ×2 (10:32→21:23)
[2022-02-04] MEDS: lisinopriL 5 MG TABLET PO (10:33)
[2022-02-04] MEDS: dilTIAZem CD 180 MG CAP PO (10:33)
--- NOTE | 2022-02-04 10:38 | PT-IP ANOTE ---
Pt reporting she did not sleep well last night and not feeling well, requests to hold PT for today. Per rounds, Dr. louis regroup w/ pt about goals of care.
--- NOTE | 2022-02-04 11:47 | DIET.CONS2 ---
Dietary Inpatient Consultation Note Admission Date: 02/02/2022 12:35 Pt continues to consume 0-10% meal trays despite ONS intervention and supplying favorite foods. Pt unwilling to talk about food this morning or order lunch. Concern for Failure to Thrive. Kitchen will continue to gently work c pt on meal orders and send ONS. Diet: 01/31/22 Breakfast Heart Healthy Diet Diet Modifications: Enlive tid Nutrition Percent Meal Consumed 10% 02/04/22 10:43 Percent Meal Consumed 10% 02/03/22 18:00 Electronically Signed by: Kaitlin Johnson 02/04/22 11:47 Clinical Dietitian [address] [id number]
[2022-02-04] MEDS: MORPHINE 2 MG/ML INJ IV (21:22)
[2022-02-04] MEDS: LOPERAMIDE 2 MG CAPSULE PO (21:23)
[2022-02-04] MEDS: ATORVASTATIN 20 MG TABLET 40 MG PO (21:23)
[2022-02-05] VITALS (7 sets, daily range): BP systolic 151–156; BP diastolic 59–68; PULSE 81–85; RESP 16–20; TEMP 36.4–37.5; O2SAT 94–97
[2022-02-05] MEDS: SODIUM CHLORIDE 0.9% 1,000 ML 50 ML IV (03:14)
[2022-02-05] MEDS: MORPHINE 2 MG/ML INJ IV ×4 (03:14→22:02)
[2022-02-05] MEDS: HYDROMORPHONE 2 MG TABLET 1 MG PO (04:20)
[2022-02-05] MEDS: MEROPENEM 1 GM in SODIUM CHLORIDE 0.9% 100 ML IV ×2 (08:02→16:43)
--- NOTE | 2022-02-05 09:18 | DIET.CONS2 ---
Dietary Inpatient Consultation Note Admission Date: 02/02/2022 12:35 RD, nursing, and Unit Host gleaning information gathered from patient on preferred foods to coax increased PO intake. Pt enjoys the ONS Jose shaji portillo we are sending bid and likes yogurt, cottage cheese. After implementing these preferences on meal tray, pts dinner PO 75% up from 10%. Will continue to support pts PO intake. Diet: 01/31/22 Breakfast Heart Healthy Diet Diet Modifications: jose/edie huggins tid Nutrition Percent Meal Consumed 75% 02/04/22 18:00 Percent Meal Consumed 10% 02/04/22 10:43 Percent Meal Consumed 10% 02/03/22 18:00 Electronically Signed by: Kaitlin Johnson 02/05/22 09:18 Clinical Dietitian [address] [address]
--- NOTE | 2022-02-05 09:33 | OT.IPNOTE ---
Attempted to see pt for therapy today. Pt states would rather sleep and not wanting to participate in therapy today. Pt states that she will try tomorrow. When asking pt what are her plans after when she is medically stable, pt states to go to [facility] in [place]. Explained to the pt the importance of trying to participate in therapy at the hospital. To try again tomorrow.
--- NOTE | 2022-02-05 09:36 | PT-IP ANOTE ---
Attempted to see pt this AM - pt continues to refuse therapy, but requests for PT to check back on her tomorrow. Pt states her goal is to go to [facility] for rehab, explained importance of participating w/ therapy in hospital, but pt still refused due to fatigue.
[2022-02-05] MEDS: predniSONE 20 MG TABLET 40 MG PO (10:03)
[2022-02-05] MEDS: lisinopriL 5 MG TABLET PO (10:03)
[2022-02-05] MEDS: QUETIAPINE 25 MG TABLET 12.5 MG PO ×2 (10:03→20:55)
[2022-02-05] MEDS: dilTIAZem CD 180 MG CAP PO (10:04)
[2022-02-05] MEDS: ENOXAPARIN 40 MG/0.4 ML SYRINGE SUBCUT (10:05)
--- NOTE | 2022-02-05 10:46 | PC.NURSE ---
Pt power of compliance attorney Alyssa Ramirez took home pts brown leather wallet and brown leather card guillen.
--- NOTE | 2022-02-05 14:56 | CM.DPNOTE ---
DCP Note Spoke w/Dr Brown and w/MAHI Shah. Plan now is for comfort management at SNF using STEPHEN coverage. No ERCP and no oncology follow up expected. Patient not medically stable for DC today, Dr Brown hopeful patient will be ready for DC over the next 24-48 hrs PASRR completed in anticipation of SNF Discussed referral and needs w/Rosario at [facility] who is prepared to admit when medically stable JW
--- NOTE | 2022-02-05 17:32 | P.PN_ITS ---
Subjective Subjective Date Patient Seen: 02/05/22 Time Patient Seen: 08:00 Interval history: No complaints today. She does appear quite confused. She has pain with touching her abdomen. Exam Vital Signs (past 8 hours): - 02/05/22 10:03 02/05/22 10:12 02/05/22 10:40 Temperature 97.6 F Pulse Rate 81 81 Respiratory Rate 18 Blood Pressure 156/62 H 156/62 H Pulse Oximetry 97 97 Oxygen Delivery Method Nasal Cannula Oxygen Flow Rate 2 2 02/05/22 10:40 02/05/22 11:07 02/05/22 12:00 Temperature 97.6 F Pulse Rate 81 Respiratory Rate 18 Blood Pressure 156/62 H Pulse Oximetry 94 97 97 Oxygen Delivery Method Room Air Nasal Cannula Oxygen Flow Rate 2 2 Oxygen Delivery Method Nasal Cannula Oxygen Flow Rate 2 Narrative Exam Narrative: GEN: no acute distress CV: regular rate and rhythm, no murmurs PULM: clear bilaterally, no murmurs ABD: soft, nontender, nondistended, no organomegaly EXT: warm and well perfused NEURO: confused Objective Labs Result Diagrams: 02/04/22 07:19 02/04/22 07:19 [facility] Medical History Anxiety Asthma HLD (hyperlipidemia) Osteoarthritis PTSD (post-traumatic stress disorder) Spinal fracture Surgical History Hx of knee surgery Social History household members: none Smoking Status: Former smoker alcohol intake: never Assessment & Plan Assessment & Plan narrative: 1. Concern for metastatic cancer MRCP with noted lesion at the ampulla.? Also has increased mucus plugging in the right lower lobe of lung with a new pulmonary nodule with adjacent lymph node. Concern for metastatic disease -discussed with MARITZA Shah about whether patient would want or be able to undergo ERCP and possible further interventions, for now not within goals of care 2. Fever, Leukocytosis. Currently on meropenem.? Temperature stable today.? White blood count now normal.? Continue to follow. Patient on meropenem. Will complete a 5 day course. -finish abx at end of 02/05 -due to obstruction patient is high risk for further infections 3. Acute encephalopathy, metabolic MRI head shows no metastatic lesions. Several of her medications that the patient was on have not been continued and these include divalproex, hydrocodone , mirtazapine, gabapentin, temazepam. ? Holding these could have benefit the patient.? Patient has been initiated on Dilaudid as needed for pain control.? Patient likely at baseline now. 4. Possible left 1st phalanx foot fracture.?Questionable fracture of the volar base of the proximal 1st phalanx. Continue symptomatic treatment with pain medications 5. Compression fractures-reason for back pain Continue symptomatic treatment with pain medications, Dilaudid as needed. 6. Tremors Chronic with no treatment.? Patient indicates the only thing that he can settle the tremors are tranquilizers. 7. Hypertension.??Currently on lisinopril and diltiazem. Reasonably stable. 8. Respiratory exam consistent with COPD exacerbation. We will re-initiate patient's albuterol and also treat with prednisone to stabilize. Continue to follow clinically. Goal is to finish meropenem 5 day course, treat the COPD exacerbation Goals of care: MARITZA does not think masha has done well at home over the last 1.5 years. Quality of life is declining and she is unable to care for self at home. She thinks patient's care should be focused on comfort. Time Spent With Patient Critical Care time: I spent a total of [] minutes of critical care time on this patient's care today; this time is exclusive of procedural time. Quality VTE Deep Vein Thrombosis/Pulmonary Embolism Present on Admission: No
[2022-02-05] MEDS: ATORVASTATIN 20 MG TABLET 40 MG PO (20:55)
[2022-02-06 00:27] VITALS: RESP 18
[2022-02-06] MEDS: LORazepam 1 MG TABLET PO (00:43)
[2022-02-06] MEDS: MORPHINE 2 MG/ML INJ IV (03:45)
[2022-02-06 03:51] VITALS: BP 157/77; PULSE 88; RESP 16; TEMP 36.9; O2SAT 92
[2022-02-06 07:00] VITALS: O2SAT 96
[2022-02-06 07:55] VITALS: BP 170/69; PULSE 98; RESP 17; TEMP 37.1; O2SAT 94
[2022-02-06] MEDS: predniSONE 20 MG TABLET 40 MG PO (08:13)
[2022-02-06] MEDS: ENOXAPARIN 40 MG/0.4 ML SYRINGE SUBCUT (08:13)
[2022-02-06 08:14] VITALS: BP 170/69
[2022-02-06] MEDS: lisinopriL 5 MG TABLET PO (08:14)
[2022-02-06] MEDS: dilTIAZem CD 180 MG CAP PO (08:14)
[2022-02-06] MEDS: QUETIAPINE 25 MG TABLET 12.5 MG PO (08:14)
--- NOTE | 2022-02-06 08:35 | DI.RAD.S_ITS ---
PROCEDURE: XR CHEST 1V INDICATIONS: sob TECHNIQUE: One view of the chest was acquired. COMPARISON: [facility], CR, XR CHEST 1V, 01/31/2022, 13:43. FINDINGS: Surgical changes and devices: None. Lungs and pleura: Lungs are clear. The lungs demonstrate emphysematous changes. No pleural effusions or pneumothorax. Interstitial prominence is unchanged compared to the prior study and is likely chronic. Mediastinum: Mediastinal contours appear normal. Heart size is normal. Bones and chest wall: No suspicious bony lesions. Vertebroplasty changes in the lower thoracic spine. Overlying soft tissues appear unremarkable. IMPRESSION: 1. No acute abnormality. 2. Prominent interstitial changes, likely chronic and related to underlying emphysematous. Dictated by: Fili Gregory M.D. on 02/06/2022 at 8:30 Approved by: Fili Gregory M.D. on 02/06/2022 at 8:32
[2022-02-06 09:16] LABS: Add Manual Diff / Slide Review NO; Basophils Absolute Auto 0 /uL (0-100); Basophils Percent Auto 0.2 % (0-2); Eosinophils Absolute Auto 100 /uL (0-450); Eosinophils Percent Auto 0.8 % (2-4); Hematocrit 32.2 % (36-46); Lymphocytes Absolute Auto 1900 /uL (1100-4500); Lymphocytes Percent Auto 18.3 % (25-40); Mean Corpuscular HGB Conc 34.3 % (30-36); Mean Corpuscular Hemoglobin 30.4 PG (26-34); Mean Corpuscular Volume 88.8 fL (80-100); Monocytes Absolute Auto 1300 /uL (0-900); Monocytes Percent Auto 12.5 % (3-14); Neutrophils Absolute Auto 7100 /uL (1500-7000); Neutrophils Percent Auto 68.2 % (50-75); Platelet Count 405 X10^3/uL (150-400); Red Blood Cell Count 3.63 X10^6/uL (4.0-5.2); White Blood Cell Count 10.4 X10^3/uL (4.5-11.0)
[2022-02-06 09:27] LABS: Alanine Aminotransferase 31 IU/L (<35); Albumin 2.8 g/dL (3.5-5.0); Alkaline Phosphatase 80 U/L (38-126); Aspartate Aminotransferase 25 IU/L (14-36); BUN Creatinine Ratio 38.8 (6-22); Bilirubin Total 0.5 mg/dL (0.2-1.3); Blood Urea Nitrogen 19 mg/dL (7-17); Calcium 8.2 mg/dL (8.4-10.2); Carbon Dioxide 32 mmol/L (22-32); Chloride 102 mmol/L (98-107); Estimated Glomerular Filt Rate > 60 mL/min (>60); Globulin 2.7 g/dL (1.7-4.1); Glucose 94 mg/dL (80-110); HEMOLYSIS < 15 (0-50); Potassium 3.8 mmol/L (3.4-5.1); Sodium 135 mmol/L (137-145); Total Protein 5.5 g/dL (6.3-8.2)
[2022-02-06 09:35] LABS: NT-proBNP (BNP-Adult 18+) 895 pg/mL (<450)
--- NOTE | 2022-02-06 09:56 | PC.NURSE ---
Pt has received D/C orders. New Covid swab sent to lab. Will be D/C later this morning.
--- NOTE | 2022-02-06 10:06 | OT.IPNOTE ---
Pt now comfort care , therefore discharge from OT services.
[2022-02-06 10:17] LABS: COVID19 -Nasal RAPID Negative (Negative)
--- NOTE | 2022-02-06 10:31 | PM.DS.1 ---
History of Present Illness History of Present Illness Chief complaint: fatigue Narrative: Ms. Rangel is a 76W with H depression, previous suicide attempt who presents to the hospital with weakness and diarrhea. The patient is quite confused and forgetful, has difficulty finding words. She has a quite difficult time relaying what she has been feeling aside from the last few days she has decreased appetite and diarrhea that is not bloody. However after speaking with her friend, her friend notes that she has had a more progressive decline. The patient in her opinion, can not care for herself, she lives alone, with some intermittent caregiver support. She has noted her mental faculties start to worsen over a period of months. She has become forgetful and altered. She has had issues with falls, and possibly a fall earlier this month where she injured her hip and was at [facility] with concern for left hip fracture. She has had long time issues with mental health and was in a psych facility earlier this year. She is not sure about all the details of Ms. Rangel's health however. In the ED workup was done, vitals were unremarkable except for high blood pressure. Labs notable for WBC 14.7, hgb 11.1, creatinine 0.69. Troponin negative. Procalcitonin 0.21. Lactate 0.8. Chest xray showed stable pathcy opacities through the right greater than left lungs. CT shows nonspecific soft tissue attenuation around the head of the pancreas, as well as common bile duct dilation and intrahepatic duct dilation. 8mm right middle lobe irregular pulmonary nodule is noted. She also is noted to have colon distention, wall thickening and surrounding inflammation with wall thickening of the distal rectum. Also multiple compression fractures. Foot xray shows possible 1st phalanx fracture. She was admitted for further treatment. Discharge Providers Provider Date of admission: 02/02/22 12:35 Discharge Date: 02/06/22 Primary care physician: Boni Truong MD Consults: 01/31/22 22:40 Consult to Occupational Therapy Evaluate & Treat Comment: Physician Instructions: Evaluate and treat Consult to Physical Therapy Evaluate & Treat Comment: Physician Instructions: Evaluate and Treat 02/02/22 18:02 Consult to Dietitian, Adult Routine Comment: Reason For Exam: Protocol, scores high risk. 02/03/22 05:17 Consult to Inpatient Wound Care Nurse Routine Comment: Reason for consultation: skin excoriation due to diarrhea 02/04/22 08:08 Consult to Physician Routine Comment: Consulting Provider: Mike Massey Reason for consultation: Pancreatic ampulla lesion. Assess patient to do endoscopy and biopsy. Has provider been notified: No 02/05/22 13:33 Consult to Hospice Referral Routine Comment: Discharge provider: Brent Santiago MD Summary Hospital Course Discharge Diagnosis: 1. Ampullary lesion 2. Duodenitis 3. Fever, leukocytosis 4. Acute on chronic encephalopathy 5. Possible left 1st phalanx foot fracture 6. Compression fractures 7. Tremors 8. Hypertension 9. Possible depression Hospital Course: Ms. Rangel is a 76W who presented to the hospital with weakness, confusion and abdominal pain. She had a fever, and elevated white count. CT abdomen showed significant constipation, and more concerning was findings of blockage in her liver/pancreatic duct system. There was a possible mass at the ampulla. She also had a possible mass in her lung. This was concerning for possible cancer. She was started on antibiotics for concern about colitis vs cholangitis. Discussion was had with her POA about goals of care. The patient had a months to years of decline both physically and mentally. She had no family. She was unable to care for herself. Her POA did agree that aggressive interventions were not appropriate for her care. She did agree that comfort focused care was the primary goal of Ms. Rangel's treatment. She will be discharged on two more days of antibiotics. She should be ordered bowel regimen to have regular bowel movements. She is likely to develop further infections in the future due to her blockage in her abdomen, and at some point could pass away from this process. CODE: DNR/DNI Exam Vital Signs (past 8 hours): - 02/06/22 03:51 02/06/22 07:00 02/06/22 07:55 Temperature 98.4 F 98.7 F Pulse Rate 88 98 H Respiratory Rate 16 17 Blood Pressure 157/77 H 170/69 H Pulse Oximetry 92 96 94 Oxygen Delivery Method Room Air Oxygen Flow Rate 0 0 02/06/22 08:14 Temperature Pulse Rate Respiratory Rate Blood Pressure 170/69 H Pulse Oximetry Oxygen Delivery Method Oxygen Flow Rate Oxygen Delivery Method Room Air Oxygen Flow Rate 0 Narrative Exam Narrative: GEN: no acute distress CV: regular rate and rhythm, no murmurs PULM: clear bilaterally, no murmurs ABD: soft, nontender, nondistended, no organomegaly EXT: warm and well perfused NEURO: confused Objective Labs Result Diagrams: 02/06/22 09:09 02/06/22 09:09 Labs: Laboratory Results - last 24 hr 02/06/22 02/06/22 02/06/22 09:09 09:09 09:58 WBC 10.4 RBC 3.63 L Hgb 11.0 L Hct 32.2 L MCV 88.8 MCH 30.4 MCHC 34.3 RDW 14.0 Plt Count 405 H Neut % (Auto) 68.2 Lymph % (Auto) 18.3 L [place] % (Auto) 12.5 Eos % (Auto) 0.8 L Baso % (Auto) 0.2 Neut # (Auto) 7100 H Lymph # (Auto) 1900 [place] # (Auto) 1300 H Eos # (Auto) 100 Baso # (Auto) 0 Sodium 135 L Potassium 3.8 Chloride 102 Carbon Dioxide 32 BUN 19 H Creatinine 0.49 L Estimated GFR > 60 BUN/Creatinine Ratio 38.8 H Glucose 94 Calcium 8.2 L Total Bilirubin 0.5 AST 25 ALT 31 Alkaline Phosphatase 80 NT-Pro-B Natriuret Pep 895 H Total Protein 5.5 L Albumin 2.8 L Globulin 2.7 Albumin/Globulin Ratio 1.0 SARS-CoV-2 (PCR) Negative [facility] Medical History Anxiety Asthma HLD (hyperlipidemia) Osteoarthritis PTSD (post-traumatic stress disorder) Spinal fracture Surgical History Hx of knee surgery Social History household members: none Smoking Status: Former smoker alcohol intake: never Discharge Plan Discharge Plan Patient Disposition: SNF Transfer to: [facility] Provider Discharge Comment: Ms. Rangel was admitted with abdominal pain. She was found to have blockage in her liver. The cause was concerning for cancer. Discussion was had with her POA who agreed she would not do well with aggressive interventions and who noted patient had been progressively declining and worsening quality of life. She wanted to focus on keeping her comfortable. She was discharged to [facility] to focus on keeping her comfortable. Discharge orders & Medications Prescriptions: New acetaminophen 325 mg Tablet 650 mg PO Q6HR PRN (Reason: Fever/Mild Pain (1-3)) Qty: 30 0RF hydromorphone 2 mg Tablet 1 mg PO Q6HR PRN (Reason: Pain, Severe (7-10)) Qty: 12 0RF pantoprazole [Protonix] 40 mg tablet,delayed release (DR/EC) 40 mg PO DAILY Qty: 30 0RF levofloxacin 750 mg tablet 750 mg PO DAILY Qty: 2 0RF metronidazole 500 mg tablet 500 mg PO Q8H Qty: 6 0RF Continued albuterol sulfate [Ventolin HFA] 90 MCG/PUFF HFA aerosol inhaler 1 - 2 puff INH PRN PRN (Reason: Shortness Of Breath) Qty: 0 alendronate 70 MG tablet 70 mg PO QWEEK Qty: 0 estradiol [Estrace] 0.01 % (0.1 mg/gram) cream 0.5 g vaginal BEDTIME Qty: 42.5 0RF Rx Instructions: 0.5gm intravaginal daily for 30 days divalproex 125 mg tablet,delayed release (DR/EC) 375 mg PO TID atorvastatin 40 mg tablet 40 mg PO DAILY mirtazapine 30 mg tablet 45 mg PO DAILY betamethasone dipropionate 0.05 % ointment 1 ea TOPICAL BID Label Comments: APPLY OINTMENT TOPICALLY TWICE DAILY quetiapine 25 mg tablet 1 - 2 tab PO BEDTIME Label Comments: TAKE 1 TO 2 TABLETS BY MOUTH IN THE EVENING diltiazem HCl 180 mg capsule,extended release 24hr 1 cap PO DAILY Label Comments: TAKE 1 CAPSULE BY MOUTH ONCE DAILY fluticasone propionate 50 mcg/actuation spray,suspension 2 spray INTRANASAL DAILY Label Comments: USE 2 SPRAY(S) IN EACH NOSTRIL ONCE DAILY prazosin 2 mg capsule 1 - 2 cap PO BEDTIME Rx Instructions: 60 min before bed budesonide-formoterol [Symbicort] 160-4.5 mcg/actuation HFA aerosol inhaler 2 inh INHALATION BID Label Comments: INHALE 2 PUFFS BY MOUTH TWICE DAILY DIRECTED levocetirizine 5 mg tablet 1 tab PO DAILY Label Comments: TAKE 1 TABLET BY MOUTH ONCE DAILY NEEDED FOR ALLERGIES meloxicam 7.5 mg tablet 1 tab PO DAILY Qty: 30 0RF gabapentin 300 mg capsule 600 mg PO TID Qty: 30 0RF Discontinued temazepam 15 mg capsule 30 mg PO BEDTIME PRN (Reason: Sleep) Rx Instructions: 30 min before bed hydrocodone-acetaminophen 10-325 mg tablet 1 tab PO Q12HR methocarbamol 500 mg tablet 1 tab PO TID Label Comments: TAKE 1 TABLET BY MOUTH THREE TIMES DAILY NEEDED Follow up/Referrals: Boni Truong MD [Primary Care Provider] - Diet/Activity/Treatments Diet: Regular Liquid consistency: Normal/Thin Food texture: Regular Discharge Data Primary Care Provider: Boni Truong Quality VTE Deep Vein Thrombosis/Pulmonary Embolism Present on Admission: No
--- NOTE | 2022-02-06 11:01 | CM.DPC ---
Addendum entered by ELISEO Prieto 02/06/22 11:15: ADD: SW provided the Medicare Message copy to pt and placed a copy in her d/c packet to SNF for review. 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 Per RN, pt has been resting and stable today and PT/OT orders cancelled as pt is not interested in rehab but comfort care due to her malignancy and newer CA dx. SHEA called [facility] and confirm they can accept at 1300 today. SHEA faxed signed med rec, scripts, MD [facility]SUF orders, updated COVID neg swab from this morning to [facility] for review and awaiting d/c summary. SHEA called pt's MARITZA Shah and left msg on vm updating on plan of d/c to [facility] at 1300 today. SHEA updated RN, welding machine operator submerged arc, and [facility]. Plan: Patient to d/c to [facility] for comfort measures and intermediate school teacher care under Medicaid due to new dx of cancer with mets. ELISEO Prieto
[2022-02-06 12:10] VITALS: BP 147/81; PULSE 88; RESP 17; TEMP 37; O2SAT 93
[2022-02-06] MEDS: polyethylene glycoL 3350 17 GM POWD.PACK PO (12:28)
[2022-02-06] MEDS: HYDROMORPHONE 2 MG TABLET 1 MG PO (12:30)
--- NOTE | 2022-02-06 13:23 | PC.NURSE ---
Report given to Janice ALLEN at [facility]. Pt stood with 2-person assist to wheelchair
== END 2022-02-06 13:24 | DRG 391 ==
LOC: ED 17:40 → AC 18:02
PROVIDERS: Internal Medicine; Neuromusculoskeletal Medicine, Sports Medicine; Admitting Provider Family Medicine; Emergency Provider Physician Assistant; PCP Internal Medicine; Referring Provider Physician Assistant; Visit Provider Family Medicine
DX: K29.80 Duodenitis without bleeding (principal); G93.41 Metabolic encephalopathy; K83.1 Obstruction of bile duct; J44.1 Chronic obstructive pulmonary disease with (acute) exacerbation; M48.54XG Collapsed vertebra, not elsewhere classified, thoracic region, subsequent encounter for fracture with delayed healing; K86.89 Other specified diseases of pancreas; R29.6 Repeated falls; I10 Essential (primary) hypertension; F32.A Depression, unspecified; R25.1 Tremor, unspecified; S92.512A Displaced fracture of proximal phalanx of left lesser toe(s), initial encounter for closed fracture; X58.XXXA Exposure to other specified factors, initial encounter; Z20.822 Contact with and (suspected) exposure to COVID-19; Z87.891 Personal history of nicotine dependence
CPT/HCPCS: 36415; 70450; 70553; 71045; 71260; 73501; 73630; 74177; 74183; 80048; 80053; 80076; 81001; 82550; 83605; 83690; 83880; 84145; 84484; 85007; 85025; 86140; 87040; 87507; 87635; 94760; 96374; 97162; 97166; 97530; 99284; C9803; G0378; A9579; J1642; J1650; J2185; J2270; J2405; Q9967